=== PATIENT | female | born 1970 | race Caucasian/White ===

== ENCOUNTER 2020-10-02 09:42 | Outpatient (REF) | payer BC, SELFPAY ==
--- NOTE | 2020-10-02 | FL_ITS ---
EXAMINATION: FL BARIUM SWALLOW CLINICAL INFORMATION: Dysphagia COMPARISON: None TECHNIQUE: Barium swallow examination is performed using fluoroscopic evaluation in addition to multiple fluoroscopic spot views. The patient is imaged both upright and prone and using both thick and thin sulfate along with effervescent granules. Barium tablet was also administered. Fluoroscopy time: 0.7 minutes DAP: 4.1 Gycm2 Images: 40 FINDINGS: No aspiration or penetration is seen. There is mild impression on the posterior esophagus from vertebral body bony osteophyte at C6-C7. Esophageal motility is normal. No mass, stricture, mucosal irregularity, reflux or hernia is seen. Barium tablet passed into the stomach. FL/FL barium swallow IMPRESSION: Impression on the posterior cervical esophagus from vertebral body bony osteophyte at C6-C7 otherwise unremarkable exam.
== END 2020-10-02 09:43 | disposition home or self-care (01) ==
LOC: HO.XRAY 09:42
PROVIDERS: Visit Provider Internal Medicine
DX: R13.14 Dysphagia, pharyngoesophageal phase (principal)
CPT/HCPCS: 74220

== ENCOUNTER 2022-02-02 13:28 | Outpatient (REF) | payer BC, SELFPAY ==
[2022-02-02 16:54] LABS: MANUAL DIFF FLAG NO
[2022-02-02 16:59] LABS: Basophils Percent Auto 0.6 % (0-2); Eosinophils Absolute Auto 0.2 X10*3/uL (0.0-0.4); Eosinophils Percent Auto 2.6 % (0-4); Hematocrit 38.6 % (37.0-47.0); Hemoglobin 12.7 g/dl (12.0-16.0); Imm Gran Abs Auto 0.03 X10*3/uL (0.00-0.03); Imm Gran Pct Auto 0.4 % (0.0-0.4); Lymphocytes Absolute Auto 1.3 X10*3/uL (1.2-4.9); Lymphocytes Percent Auto 19.5 % (20-40); Mean Corpuscular HGB Conc 32.9 g/dl (31.0-35.0); Mean Corpuscular Hemoglobin 29.1 pg (27.0-33.0); Mean Corpuscular Volume 88.3 fL (80.0-98.0); Mean Platelet Volume 9.3 fL (9.4-12.3); Monocytes Absolute Auto 0.4 X10*3/uL (0.1-1.2); Monocytes Percent Auto 5.7 % (2-11); Neutrophils Absolute Auto 4.8 x10*3/uL (2.0-8.3); Neutrophils Percent Auto 71.2 % (45-73); Platelet Count 383 X10*3/uL (160-400); Red Blood Count 4.37 X10*6/uL (4.20-5.50); Red Cell Distribution Width 12.5 % (11.0-16.0); White Blood Count 6.8 X10*3/uL (4.8-10.8)
[2022-02-02 17:11] LABS: Alanine Aminotransferase 22 U/L (0-31); Albumin Level 4.5 g/dL (3.5-5.0); Alkaline Phosphatase 86 U/L (39-117); Anion Gap 13 (12-20); Aspartate Amino Transferase 16 U/L (5-31); Bilirubin Total 0.5 mg/dL (0.0-1.0); Blood Urea Nitrogen 12 mg/dL (9-16); Carbon Dioxide 24 mmol/L (22-29); Chloride 104 mmol/L (96-108); Cholesterol 231 mg/dL; Estimated Average Glucose 100 mg/dL; Estimated Glomerular Filt Rate > 60; Glucose Random 105 mg/dL (60-115); HDL Cholesterol 53 mg/dL; Hemoglobin A1c % 5.1 %; LDL Cholesterol Calculated 151 mg/dl; Potassium 4.7 mmol/L (3.3-5.1); Sodium 136 mmol/L (135-145); Total Protein 7.3 g/dL (6.5-8.0); Triglycerides 138 mg/dL
[2022-02-02 17:32] LABS: Vitamin D 25-OH Total 29.2 ng/mL (>30)
== END 2022-02-02 13:29 | disposition home or self-care (01) ==
LOC: HO.HMGCLDS 13:28
PROVIDERS: Visit Provider Internal Medicine
DX: R73.01 Impaired fasting glucose (principal)
CPT/HCPCS: 36415; 80053; 80061; 82306; 83036; 85025

== ENCOUNTER 2024-01-07 10:36 | Outpatient (REF) | payer BC, SELFPAY ==
[2024-01-07 13:23] LABS: MANUAL DIFF FLAG NO
[2024-01-07 13:31] LABS: Basophils Percent Auto 0.7 % (0-2); Eosinophils Absolute Auto 0.3 X10*3/uL (0.0-0.4); Eosinophils Percent Auto 4.2 % (0-4); Hemoglobin 12.1 g/dl (12.0-16.0); Imm Gran Abs Auto 0.01 X10*3/uL (0.00-0.03); Imm Gran Pct Auto 0.2 % (0.0-0.4); Lymphocytes Absolute Auto 1.5 X10*3/uL (1.2-4.9); Lymphocytes Percent Auto 23.9 % (20-40); Mean Corpuscular HGB Conc 32.7 g/dl (31.0-35.0); Mean Corpuscular Hemoglobin 27.8 pg (27.0-33.0); Mean Corpuscular Volume 84.9 fL (80.0-98.0); Monocytes Absolute Auto 0.4 X10*3/uL (0.1-1.2); Monocytes Percent Auto 7.2 % (2-11); Neutrophils Absolute Auto 3.9 x10*3/uL (2.0-8.3); Neutrophils Percent Auto 63.8 % (45-73); Platelet Count 297 X10*3/uL (160-400); Red Blood Count 4.36 X10*6/uL (4.20-5.50); Red Cell Distribution Width 13.2 % (11.0-16.0); White Blood Count 6.2 X10*3/uL (4.8-10.8)
[2024-01-07 13:37] LABS: Estimated Average Glucose 114 mg/dL; Hemoglobin A1c % 5.6 % (<6.0)
[2024-01-07 14:23] LABS: Alanine Aminotransferase 35 U/L (0-31); Albumin Level 3.9 g/dL (3.5-5.0); Alkaline Phosphatase 84 U/L (39-117); Anion Gap 13 (12-20); Aspartate Amino Transferase 21 U/L (5-31); Bilirubin Total 0.4 mg/dL (0.0-1.0); Blood Urea Nitrogen 14 mg/dL (9-16); Calcium 9.4 mg/dL (8.4-10.2); Carbon Dioxide 27 mmol/L (22-29); Chloride 105 mmol/L (96-108); Cholesterol 229 mg/dL (<200); Estimated Glomerular Filt Rate > 60; Glucose Random 103 mg/dL (60-115); HDL Cholesterol 48 mg/dL (>40); LDL Cholesterol Calculated 143 mg/dL (<100); Potassium 4.6 mmol/L (3.3-5.1); Sodium 140 mmol/L (135-145); Total Protein 6.7 g/dL (6.5-8.0); Triglycerides 194 mg/dL (<150)
== END 2024-01-07 10:37 | disposition home or self-care (01) ==
LOC: HO.MANLDS 10:36
PROVIDERS: Visit Provider Physician Assistant
DX: R07.89 Other chest pain (principal); Z13.1 Encounter for screening for diabetes mellitus
CPT/HCPCS: 36415; 80053; 80061; 83036; 85025

== ENCOUNTER 2024-04-28 13:07 | Outpatient (REF) | payer BC, SELFPAY ==
[2024-04-28 16:12] LABS: MANUAL DIFF FLAG NO
[2024-04-28 16:16] LABS: Basophils Absolute Auto 0.1 X10*3/uL (0.0-0.2); Basophils Percent Auto 0.8 % (0-2); Eosinophils Absolute Auto 0.2 X10*3/uL (0.0-0.4); Eosinophils Percent Auto 3.8 % (0-4); Hematocrit 38.4 % (37.0-47.0); Hemoglobin 12.5 g/dl (12.0-16.0); Imm Gran Abs Auto 0.01 X10*3/uL (0.00-0.03); Imm Gran Pct Auto 0.2 % (0.0-0.4); Lymphocytes Absolute Auto 1.7 X10*3/uL (1.2-4.9); Lymphocytes Percent Auto 27.6 % (20-40); Mean Corpuscular HGB Conc 32.6 g/dl (31.0-35.0); Mean Corpuscular Volume 85.9 fL (80.0-98.0); Mean Platelet Volume 8.9 fL (9.4-12.3); Monocytes Absolute Auto 0.5 X10*3/uL (0.1-1.2); Neutrophils Absolute Auto 3.7 x10*3/uL (2.0-8.3); Neutrophils Percent Auto 59.6 % (45-73); Platelet Count 381 X10*3/uL (160-400); Red Blood Count 4.47 X10*6/uL (4.20-5.50); Red Cell Distribution Width 13.3 % (11.0-16.0); White Blood Count 6.1 X10*3/uL (4.8-10.8)
[2024-04-28 16:58] LABS: Estimated Average Glucose 120 mg/dL; Hemoglobin A1c % 5.8 % (<6.0)
[2024-04-28 17:30] LABS: Anion Gap 13 (12-20); Blood Urea Nitrogen 18 mg/dL (9-16); Carbon Dioxide 28 mmol/L (22-29); Chloride 106 mmol/L (96-108); Potassium 4.9 mmol/L (3.3-5.1); Sodium 142 mmol/L (135-145)
[2024-04-28 17:31] LABS: Aspartate Amino Transferase 29 U/L (5-31); Bilirubin Total 0.4 mg/dL (0.0-1.0); Calcium 10.6 mg/dL (8.4-10.2); Estimated Glomerular Filt Rate > 60; Glucose Random 97 mg/dL (60-115)
[2024-04-28 17:32] LABS: Alanine Aminotransferase 42 U/L (0-31); Albumin Level 4.6 g/dL (3.5-5.0); Alkaline Phosphatase 80 U/L (39-117); Cholesterol 271 mg/dL (<200); HDL Cholesterol 40 mg/dL (>40); LDL Cholesterol Calculated 190 mg/dL (<100); Total Protein 7.8 g/dL (6.5-8.0); Triglycerides 209 mg/dL (<150)
[2024-04-28 17:43] LABS: Free T4 (Free Thyroxine) 0.82 ng/dL (0.71-1.85); Thyroid Stimulating Hormone 0.81 uIU/mL (0.32-4.0); Vitamin D 25-OH Total 47.7 ng/mL (>30)
[2024-04-28 17:58] LABS: Folate 15.6 ng/mL (> or = 4.0); Vitamin B12 749 pg/mL (200-900)
== END 2024-04-28 13:08 | disposition home or self-care (01) ==
LOC: HO.HMGCLDS 13:07
PROVIDERS: PCP Internal Medicine; Visit Provider Physician Assistant
DX: Z00.00 Encounter for general adult medical examination without abnormal findings (principal); Z13.1 Encounter for screening for diabetes mellitus; Z13.89 Encounter for screening for other disorder
CPT/HCPCS: 36415; 80053; 80061; 82306; 82607; 82746; 83036; 84439; 84443; 85025

== ENCOUNTER 2025-01-19 08:58 | Outpatient (REF) | payer BC, SELFPAY ==
--- OUTSIDE RECORDS SUMMARY | 2025-01-19 09:42 | XMS_ITS | Data Portability ---
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 MODERATE MUST MEET 2 OUT OF 3 ELEMENTS: PROBLEMS, DATA OR RISK ELEMENT 1: PROBLEMS ADDRESSED 1 OR MORE CHRONIC ILLNESS WITH EXACERBATION OR 2 OR MORE STABLE CHRONIC ILLNESSES OR 1 UNDIAGNOSED NEW PROBLEM OR 1 ACUTE ILLNESS W/SYMPTOMS OR 1 ACUTE COMPLICATED INJURY ELEMENT 2: DATA MUST MEET 1 OF 3 CATEGORIES CATEGORY 1: REVIEW OF PRIOR EXTERNAL NOTES, REVIEW OF RESULTS, ORDERING OF EACH TEST, ASSESSMENT REQUIRING INDEPENDENT HISTORIAN OR CATEGORY 2: INDEPENDENT INTERPRETATION OF TESTS BY ANOTHER PHYSICIAN OR SPECIALIST OR CATEGORY 3: DISCUSSION OF MGT OR TEST INTERPRETATION W/EXTERNAL PHYSICIAN OR SPECIALIST ELEMENT 3: RISK RISK OF COMPLICATIONS AND/OR MORBIDITY OR MORTALITY OF PATIENT MANAGEMENT PROVIDER MUST THOROUGHLY DOCUMENT EACH ELEMENT THAT IS COVERED Not available 02/02/2022 12:14:19 05/20/2022 05/20/2022 Patient agreed and verbally consents to this audio and video Telehealth appt via a secure platform [email or web address] Not available 05/20/2022 10:24:30 12/17/2023 12/17/2023 Patient agreed and verbally consents to this audio and video Telehealth appt via a secure platform [email or web address] Not available 12/17/2023 15:29:30 Plan of Treatment Reminders Order Date Submit Date Provider Last Modified By Organization Details Last Modified Time Details Appointments FOLLOW UP 15 2024 10:45A VEE HIDALGO Not available Not available Not available ANNUAL EXAM 2024 03:30P VEE HIDALGO Not available Not available Not available Lab CMP, serum or plasma 2023 024 [facility], [address] [place] [address], [address], 05/01/2024 11:56:45 CBC w/ auto diff 2023 024 [facility], [address] [place] [address], [address], 04/28/2024 12:10:53 lipid panel, blood 2023 024 [facility], [address] [place] [address], [address], 04/28/2024 12:10:53 vitamin D, 25-hydrox y, total, serum 2023 024 [facility], [address] [place] [address], [address], 04/28/2024 12:10:54 TSH + free T4, serum 2023 024 [facility], [address] [place] [address], [address], 04/28/2024 12:10:54 hemoglobi n A1c, QN, blood 2023 024 [facility], [address] [place] [address], [address], 04/28/2024 12:10:54 vitamin B12 + folate, serum or blood 2023 024 [facility], [address] [place] [address], [address], 04/28/2024 12:10:53 CBC w/ auto diff 2023 024 [facility], [address] [place] [address], [address], 01/07/2024 10:32:40 CMP, serum or plasma 2023 024 [facility], [address] [place] [address], [place], [address], 01/10/2024 11:40:37 lipid panel, serum 2023 024 [facility], [address] [place] [address], [address], 01/10/2024 11:40:37 hemoglobi n A1c, QN, blood 2023 024 [facility], [address] [place] [address], [place], [address], 01/10/2024 11:40:38 CMP, serum or plasma 2021 022 [facility] Not available 02/03/2022 11:57:09 lipid panel, serum 2021 022 [facility] Not available 02/03/2022 11:57:09 vitamin D, 25-hydrox y, total, serum 2021 022 [facility] Not available 02/03/2022 11:57:09 CBC w/ auto diff 2021 022 [email or web address] Not available 02/02/2022 12:24:16 hemoglobi n A1c, QN, blood 2021 022 [facility] Not available 02/03/2022 11:57:09 Referral otolaryng ologist referral 2023 024 talya Sommers MD, [address] [place], [address], 05/02/2024 08:35:37 Procedures None recorded. Surgeries None recorded. Imaging CT, abdomen + pelvis, w/o contrast - NOT REQUIRED Procedure codes: 21141Yncq Reference #: [id number] AMResolut ion: Completed on 4 at 11:28 am. Call ref #[id number] 5AM.had gallbladd er removed 2023 024 [email or web address] Not available 05/02/2024 08:37:31 CT, neck, soft tissue, w/ contrast - NOT REQUIRED Procedure codes: 49779Pwde Reference #: [id number] 33Resolut ion: Completed on at 02:38 pm. Call ref #[id number] 733. 2023 024 [email or web address] Not available 01/24/2024 08:06:25 exercise stress test 2021 022 hrubner [facility], [address] [place] [address], [address], 02/06/2022 09:48:03 CT, heart, w/o contrast, w/ coronary calcium score 2021 022 hrubner Not available 02/06/2022 09:48:03 event monitor 2021 022 hrubner [facility], [address] [place], [address], 02/06/2022 09:48:03 Medication Orders fluticaso ne propionat e 110 mcg/actua tion HFA aerosol inhaler 2023 024 [facility], [address] [place], [address], 01/07/2024 10:28:36 levofloxa mickey 500 mg tablet 2023 024 [facility], [address] [place], [address], 12/22/2023 08:56:35 prednison e 10 mg tablet 2023 024 [email or web address] [facility], [address] [place], [address], 04/28/2024 11:53:38 albuterol sulfate HFA 90 mcg/actua tion aerosol inhaler 2023 024 [facility], [address] [place], [address], 04/28/2024 11:54:11 benzonata te 200 mg capsule 2023 024 [email or web address] [facility], [address] [place], [address], 04/28/2024 11:53:59 codeine 10 mg-guaife nesin 100 mg/5 mL oral liquid 2021 022 [facility], [address] [place], [address], 12/22/2023 08:56:18 Zithromax Z-Jevon 250 mg tablet 2021 022 [facility], [address] [place], [address], 12/22/2023 08:56:28 Patient TargetsNo targets recorded. Patient InstructionsNo instructions recorded. 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 [email or web address] [facility] [address] , [place], [address], 02/27/2022 11:22:39 03/09/20 22 03/09/2022 event monit or No observ ation record ed. [facility] [address] , [place], [address], 03/09/2022 22:44:50 03/09/20 22 03/09/2022 event monit or No observ ation record ed. [facility] [address], [place], [address], 03/09/2022 22:44:51 03/09/20 22 03/09/2022 event monit or No observ ation record ed. [facility] [address], [place], [address], 03/09/2022 22:44:52 03/09/20 22 03/09/2022 event monit or No observ ation record ed. [facility] [address], [place], [address], 03/10/2022 08:11:34 03/10/20 22 03/10/2022 event monit or No observ ation record ed. Not Available 2021 15:07:25 03/10/20 22 03/10/2022 event monit or No observ ation record ed. Not Available 2021 08:11:21 03/10/20 22 03/09/2022 event monit or No observ ation record ed. [facility] [address], [place], [address], 03/11/2022 08:11:33 03/11/20 22 03/11/2022 event monit or No observ ation record ed. [facility] [address], [place], [address], 03/11/2022 10:21:35 03/11/20 22 03/11/2022 event monit or No observ ation record ed. [facility] [address], [place], [address], 03/11/2022 10:21:47 03/11/20 22 03/11/2022 event monit or No observ ation record ed. [facility] [address], [place], [address], 03/11/2022 10:22:04 03/11/20 22 03/11/2022 event monit or No observ ation record ed. Not Available 2021 09:22:06 03/11/20 22 03/11/2022 event monit or No observ ation record ed. [facility] [address], [place], [address], 03/12/2022 09:22:31 03/11/20 22 03/11/2022 event monit or No observ ation record ed. Not Available 2021 09:23:10 03/11/20 22 03/11/2022 event monit or No observ ation record ed. [facility] [address], [place], [address], 03/12/2022 16:35:25 03/11/20 22 03/11/2022 event monit or No observ ation record ed. [facility] [address], [place], [address], 03/12/2022 16:35:43 03/12/20 22 03/12/2022 event monit or No observ ation record ed. Not Available 2021 16:35:56 03/12/20 22 03/12/2022 event monit or No observ ation record ed. [facility] [address], [place], [address], 03/12/2022 16:36:08 03/13/20 22 03/13/2022 event monit or No observ ation record ed. Not Available 2021 12:18:37 03/13/20 22 03/13/2022 event monit or No observ ation record ed. [facility] [address], [place], [address], 03/14/2022 07:16:24 03/13/20 22 03/09/2022 event monit or No observ ation record ed. Not Available 2021 07:16:35 03/14/20 22 03/14/2022 event monit or No observ ation record ed. [facility] [address], [place], [address], 03/15/2022 07:53:11 03/15/20 22 03/15/2022 event monit or No observ ation record ed. [facility] [address], [place], [address], 03/16/2022 06:52:03 03/15/20 22 03/15/2022 event monit or No observ ation record ed. [facility] [address], [place], [address], 03/16/2022 06:52:19 03/15/20 22 03/15/2022 event monit or No observ ation record ed. [facility] [address], [place], [address], 03/16/2022 06:52:33 03/15/20 22 03/15/2022 event monit or No observ ation record ed. Not Available 2021 06:52:47 03/15/20 22 03/15/2022 event monit or No observ ation record ed. Not Available 2021 06:53:01 03/15/20 22 03/09/2022 event monit or No observ ation record ed. [facility] [address], [place], [address], 03/16/2022 06:53:16 03/17/20 22 03/17/2022 event monit or No observ ation record ed. [facility] [address], [place], [address], 03/17/2022 08:05:59 03/18/20 22 03/18/2022 event monit or No observ ation record ed. [facility] [address], [place], [address], 03/18/2022 10:43:33 03/18/20 22 03/18/2022 event monit or No observ ation record ed. [facility] [address], [place], [address], 03/18/2022 10:43:46 03/18/20 22 03/18/2022 event monit or No observ ation record ed. [facility] [address], [place], [address], 03/18/2022 10:43:59 03/18/20 22 03/09/2022 event monit or No observ ation record ed. [facility] [address], [place], [address], 03/18/2022 16:52:18 03/18/20 22 03/18/2022 event monit or No observ ation record ed. [facility] [address], [place], [address], 03/18/2022 16:52:08 03/18/20 22 03/18/2022 event monit or No observ ation record ed. [facility] [address], [place], [address], 03/19/2022 07:47:30 03/18/20 22 03/18/2022 event monit or No observ ation record ed. [facility] [address], [place], [address], 03/19/2022 07:47:51 03/19/20 22 03/19/2022 event monit or No observ ation record ed. [facility] [address], [place], [address], 03/19/2022 09:56:02 03/19/20 22 03/19/2022 event monit or No observ ation record ed. Not Available 2021 18:53:49 03/19/20 22 03/19/2022 event monit or No observ ation record ed. [facility] [address], [place], [address], 03/19/2022 18:54:03 03/19/20 22 03/19/2022 event monit or No observ ation record ed. [facility] [address], [place], [address], 03/19/2022 18:54:15 03/19/20 22 03/19/2022 event monit or No observ ation record ed. [facility] [address], [place], [address], 03/19/2022 18:54:29 03/19/20 22 03/19/2022 event monit or No observ ation record ed. [facility] [address], [place], [address], 03/19/2022 18:54:43 03/19/20 22 03/19/2022 event monit or No observ ation record ed. [facility] [address], [place], [address], 03/19/2022 18:55:00 03/19/20 22 03/19/2022 event monit or No observ ation record ed. [facility] [address], [place], [address], 03/20/2022 06:52:56 03/19/20 22 03/19/2022 event monit or No observ ation record ed. [facility] [address], [place], [address], 03/20/2022 06:53:07 03/20/20 22 03/20/2022 event monit or No observ ation record ed. [facility] [address], [place], [address], 03/20/2022 11:43:18 03/21/20 22 03/20/2022 event monit or No observ ation record ed. Not Available 2021 15:53:07 03/21/20 22 03/21/2022 event monit or No observ ation record ed. [facility] [address], [place], [address], 03/21/2022 15:53:18 03/22/20 22 03/22/2022 event monit or No observ ation record ed. Not Available 2021 07:12:18 03/23/20 22 03/23/2022 event monit or No observ ation record ed. [facility] [address], [place], [address], 03/23/2022 11:50:59 03/23/20 22 03/23/2022 event monit or No observ ation record ed. [facility] [address], [place], [address], 03/23/2022 11:51:12 03/23/20 22 03/23/2022 event monit or No observ ation record ed. [email or web address] [facility] [address], [place], [address], 03/23/2022 15:13:51 03/24/20 22 03/24/2022 event monit or No observ ation record ed. [email or web address] [facility] [address], [place], [address], 03/24/2022 15:51:45 03/24/20 22 03/24/2022 event monit or No observ ation record ed. [facility] [address], [place], [address], 03/25/2022 06:59:12 03/25/20 22 03/24/2022 event monit or No observ ation record ed. [facility] [address], [place], [address], 03/25/2022 06:59:24 03/25/20 22 03/25/2022 event monit or No observ ation record ed. [facility] [address] [facility], [place], [address], 03/25/2022 10:13:11 03/25/20 22 03/25/2022 event monit or No observ ation record ed. [facility] [address], [place], [address], 03/25/2022 14:09:52 03/25/20 22 03/09/2022 event monit or No observ ation record ed. [facility] [address], [place], [address], 03/26/2022 07:13:19 03/25/20 22 03/25/2022 event monit or No observ ation record ed. [facility] [address], [place], [address], 03/26/2022 07:13:35 03/26/20 22 03/26/2022 event monit or No observ ation record ed. [facility] [address], [place], [address], 03/26/2022 11:39:02 03/26/20 22 03/26/2022 event monit or No observ ation record ed. [facility] [address], [place], [address], 03/26/2022 15:04:33 03/26/20 22 03/26/2022 event monit or No observ ation record ed. Not Available 2021 15:04:45 03/26/20 22 03/26/2022 event monit or No observ ation record ed. [facility] [address], [place], [address], 03/27/2022 06:59:42 03/27/20 22 03/09/2022 event monit or No observ ation record ed. [email or web address] [facility] [address], [place], [address], 03/27/2022 16:47:32 03/28/20 22 03/28/2022 event monit or No observ ation record ed. [facility] [address], [place], [address], 03/28/2022 18:44:40 03/28/20 22 03/28/2022 event monit or No observ ation record ed. [email or web address] [facility] [address], [place], [address], 03/29/2022 09:43:07 03/28/20 22 03/28/2022 event monit or No observ ation record ed. [email or web address] [facility] [address], [place], [address], 03/29/2022 09:43:08 03/28/20 22 03/28/2022 event monit or No observ ation record ed. [facility] [address], [place], [address], 03/28/2022 18:45:42 03/28/20 22 03/28/2022 event monit or No observ ation record ed. [facility] [address], [place], [address], 03/29/2022 19:14:57 03/29/20 22 03/29/2022 event monit or No observ ation record ed. [facility] [address], [place], [address], 03/30/2022 06:49:04 03/29/20 22 03/29/2022 event monit or No observ ation record ed. [facility] [address], [place], [address], 03/30/2022 06:49:18 03/29/20 22 03/09/2022 event monit or No observ ation record ed. [facility] [address], [place], [address], 03/30/2022 06:49:30 03/29/20 22 03/29/2022 event monit or No observ ation record ed. [facility] [address], [place], [address], 03/30/2022 06:49:46 03/29/20 22 03/29/2022 event monit or No observ ation record ed. [facility] [address], [place], [address], 03/30/2022 06:50:04 03/30/20 22 03/30/2022 event monit or No observ ation record ed. [email or web address] [facility] [address], [place], [address], 03/30/2022 14:15:37 03/31/20 22 03/31/2022 event monit or No observ ation record ed. [email or web address] [facility] [address], [place], [address], 03/31/2022 15:29:38 04/01/20 22 03/31/2022 event monit or No observ ation record ed. [email or web address] [facility] [address], [place], [address], 04/01/2022 09:00:38 04/02/20 22 03/09/2022 event monit or No observ ation record ed. [facility] [address], [place], [address], 04/02/2022 08:03:06 04/02/20 22 04/02/2022 event monit or No observ ation record ed. Not Available 2021 08:03:18 04/02/20 22 04/02/2022 event monit or No observ ation record ed. [facility] [address], [place], [address], 04/02/2022 14:52:22 04/02/20 22 04/02/2022 event monit or No observ ation record ed. [facility] [address], [place], [address], 04/02/2022 14:52:33 04/02/20 22 04/02/2022 event monit or No observ ation record ed. Not Available 2021 18:15:50 04/02/20 22 04/02/2022 event monit or No observ ation record ed. [facility] [address], [place], [address], 04/02/2022 14:52:46 04/02/20 22 04/02/2022 event monit or No observ ation record ed. Not Available 2021 18:16:02 04/02/20 22 04/02/2022 event monit or No observ ation record ed. [facility] [address], [place], [address], 04/03/2022 06:55:08 04/03/20 22 04/03/2022 event monit or No observ ation record ed. [facility] [address], [place], [address], 04/03/2022 09:40:05 04/03/20 22 04/03/2022 event monit or No observ ation record ed. Not Available 2021 09:40:17 04/03/20 22 04/03/2022 event monit or No observ ation record ed. [facility] [address], [place], [address], 04/04/2022 08:32:45 04/03/20 22 04/03/2022 event monit or No observ ation record ed. [facility] [address], [place], [address], 04/04/2022 08:32:57 04/03/20 22 04/03/2022 event monit or No observ ation record ed. [facility] [address], [place], [address], 04/04/2022 08:33:10 04/05/20 22 04/04/2022 event monit or No observ ation record ed. [facility] [address], [place], [address], 04/06/2022 07:38:25 04/05/20 22 03/09/2022 event monit or No observ ation record ed. [facility] [address], [place], [address], 04/06/2022 07:38:38 04/05/20 22 04/05/2022 event monit or No observ ation record ed. [facility] [address], [place], [address], 04/06/2022 07:38:52 04/06/20 event monit or No observ ation record ed. [facility] [address] [facility], [place], [address], 04/06/2022 10:09:15 04/06/20 22 04/06/2022 event monit or No observ ation record ed. [facility] [address], [place], [address], 04/06/2022 15:19:33 04/06/20 22 04/06/2022 event monit or No observ ation record ed. [facility] [address], [place], [address], 04/06/2022 15:19:34 04/06/20 22 04/06/2022 event monit or No observ ation record ed. Not Available 2021 06:36:33 04/06/20 22 04/06/2022 event monit or No observ ation record ed. [facility] [address], [place], [address], 04/07/2022 06:36:46 04/06/20 22 04/06/2022 event monit or No observ ation record ed. Not Available 2021 06:37:01 04/06/20 22 04/06/2022 event monit or No observ ation record ed. Not Available 2021 06:37:14 04/08/20 22 03/09/2022 event monit or No observ ation record ed. [facility] [address] [facility], [place], [address], 04/10/2022 09:40:34 04/16/20 22 04/08/2022 event monit or No observ ation record ed. [facility] [address], [place], [address], 04/20/2022 09:07:04 06/17/20 22 06/16/2022 , echoc ardio gram No observ ation record ed. [facility] [address], [place], [address], 06/17/2022 16:12:53 12/14/19 23 12/11/2022 trans -thor acic echoc ardio gram (TTE) (PROC ) No observ ation record ed. [facility] [address] , [place], [address], 12/15/2022 22:53:42 02/20/20 23 02/09/2023 home sleep study No observ ation record ed. [facility] [address] [place], [address], 02/19/2023 14:37:23 12/21/19 24 12/21/2023 XR, chest , 2 view No observ ation record ed. [facility] [address] [facility] [address], [place], [address], 12/22/2023 08:55:56 12/22/19 24 12/21/2023 XR, neck, soft tissu e No observ ation record ed. [facility] [address], [place], [address], 12/22/2023 13:49:26 12/25/19 24 12/24/2023 US, neck, soft tissu e No observ ation record ed. [email or web address] [facility] [address] [place] [address] , [place], [address], 12/27/2023 16:21:41 02/16/20 24 02/16/2024 MAMMO , scree néstor, digit al, bilat eral No observ ation record ed. [facility] [address], [place], [address], 04/28/2024 12:25:02 02/24/20 24 02/22/2024 CT, neck, soft tissu e, w/ contr ast No observ ation record ed. [facility] [address] [facility] [address], [place], [address], 04/28/2024 12:25:02 02/25/20 24 02/25/2024 MAMMO , scree néstor, digit al, bilat eral No observ ation record ed. [facility] [address] [facility] [address], [place], [address], 04/28/2024 12:25:02 02/28/20 24 02/25/2024 MAMMO , scree néstor, digit al, bilat eral No observ ation record ed. [facility] [address] [facility] [address], [place], [address], 04/28/2024 12:25:01 02/29/20 24 02/29/2024 XR, chest , 2 view No observ ation record ed. [facility] [address] [place] [address] , [place], [address], 04/28/2024 12:25:01 05/29/20 24 05/26/2024 CT, abdom en + pelvi s, w/o contr ast No observ ation record ed. [address] [facility], [place], [address], 05/30/2024 15:14:54 08/18/20 24 08/16/2024 US, echoc ardio gram No observ ation record ed. [address] [facility] [address], [place], [address], 08/18/2024 08:50:34 09/07/20 24 09/07/2024 MAMMO , scree néstor, digit al, bilat eral No observ ation record ed. [facility] [address] [facility] [address], [place], [address], 09/08/2024 09:20:45 11/06/20 24 11/06/2024 CT, heart , w/o contr ast, w/ coron eusebio calci um score No observ ation record ed. jbigda [facility] [address] [place], [address], 11/10/2024 06:43:27 Result Notes None recorded. Problems Name Problem SNOMED Code Status Onset Date Resolution Date Notes Provider Name and Address Organization Details Recorded Time Electroc ardiogra m abnormal 629503813 Active 2021 VEE JIMENES [address] [place], [address], [facility] 2 11:23:12 Acute sinusiti s 04107847 Active 2021 VEE JIMENES [address] [place], [address], [facility] 2 10:22:40 Producti ve cough 04577916 Active 2021 VEE JIMENES [address] [place] [address], [address], [facility] 2 10:22:59 Allergic reaction to drug 519519225 Active 2021 VEE JIMENES [address] [place], [address], [facility] 2 14:00:51 Acute bronchit is 64715869 Active 2021 VEE JIMENES [address] [place], [address], [facility] 2 16:25:16 Sleep apnea 58924039 Active 2022 VEE JIMENES [address] [place] [address], [address], [facility] 3 12:33:06 Cough [id number] Active [address] [place] [address], [address], [facility] 4 15:29:39 Pneumoni a 967798927 Active 2023 VEE JIMENES [address] [place] [address], [address], [facility] 4 15:30:59 Peritons illar abscess 52973882 Active 2023 VEE JIMENES [address] [place], [address], [facility] 4 11:46:41 Mass of neck 920031364 Active 2023 VEE JIMENES [address] [place], [address], [facility] 4 13:50:00 Chronic cough 80135577 Active 2023 VEE JIMENES [address] [place], [address], [facility] 4 10:27:43 Atypical chest pain 755788428 Active 2023 VEE JIMENES [address] [place], [address], [facility] 4 10:28:56 Chronic laryngit is 12491896 Active 2023 VEE JIMENES [address] [place], [address], [facility] 4 12:04:53 Abdomina l pain 10159108 Active 2023 VEE JIMENES [address] [place], [address], [facility] 4 12:11:42 Impaired fasting glycemia 433030255 Active 2017 Dior patino [facility] 0 15:13:20 History of depressi on 262326007 Active 2017 Dior patino [facility] 0 15:13:20 Attentio n deficit hyperact ivity disorder , predomin antly inattent cielo type 11890106 Active 2017 [address]ior [address] [facility] 0 15:13:20 Degenera tion of interver tebral disc 82530570 Active 2017 cervical Dior patino [facility] Internal [facility] 0 15:13:20 Metaboli c syndrome X 485608175 [facility] 0 15:13:20 Morbid obesity 954559236 Completed 201704/07/2019 Shun Hernandez DO [address] [place], [address], [facility] 9 14:34:58 Gastroes ophageal reflux disease 301143986 [facility] 15:13:20 Problem Notes None recorded. Procedures Surgical History Date Name Laterality Status Provider Name and Address Organization Details Recorded Time cholecystectomy completed BOONE ROBINS, VEE [address] [place], [address], [facility] 04/28/2024 12:17:44 Imaging Results Imaging Date Name Status LastModified by Organization Details LastModified Time 02/26/2022 exercise stress test completed [facility] [address] [place], [address], 02/27/2022 11:22:39 03/09/2022 event monitor completed [employer] [address] [facility], [place], [address], 03/09/2022 22:44:50 03/09/2022 event monitor completed [employer] [address], [place], [address], 03/09/2022 22:44:51 03/09/2022 event monitor completed [employer] [address], [place], [address], 03/09/2022 22:44:52 03/09/2022 event monitor completed [employer] [address] [facility], [place], [address], 03/10/2022 08:11:34 03/10/2022 event monitor completed Information not available 03/10/2022 15:07:25 03/10/2022 event monitor completed Information not available 03/11/2022 08:11:21 03/09/2022 event monitor completed [facility] [address], [place], [address], 03/11/2022 08:11:33 03/11/2022 event monitor completed [facility] [address], [place], [address], 03/11/2022 10:21:35 03/11/2022 event monitor completed [facility] [address], [place], [address], 03/11/2022 10:21:47 03/11/2022 event monitor completed [facility] [address], [place], [address], 03/11/2022 10:22:04 03/11/2022 event monitor completed Information not available 03/12/2022 09:22:06 03/11/2022 event monitor completed [facility] [address], [place], [address], 03/12/2022 09:22:31 03/11/2022 event monitor completed Information not available 03/12/2022 09:23:10 03/11/2022 event monitor completed [facility] [address], [place], [address], 03/12/2022 16:35:25 03/11/2022 event monitor completed [facility] [address], [place], [address], 03/12/2022 16:35:43 03/12/2022 event monitor completed Information not available 03/12/2022 16:35:56 03/12/2022 event monitor completed [facility] [address], [place], [address], 03/12/2022 16:36:08 03/13/2022 event monitor completed Information not available 03/13/2022 12:18:37 03/13/2022 event monitor completed [facility] [address], [place], [address], 03/14/2022 07:16:24 03/09/2022 event monitor completed Information not available 03/14/2022 07:16:35 03/14/2022 event monitor completed [facility] [address], [place], [address], 03/15/2022 07:53:11 03/15/2022 event monitor completed [facility] [address], [place], [address], 03/16/2022 06:52:03 03/15/2022 event monitor completed [facility] [address], [place], [address], 03/16/2022 06:52:19 03/15/2022 event monitor completed [facility] [address], [place], [address], 03/16/2022 06:52:33 03/15/2022 event monitor completed Information not available 03/16/2022 06:52:47 03/15/2022 event monitor completed Information not available 03/16/2022 06:53:01 03/09/2022 event monitor completed [facility] [address], [place], [address], 03/16/2022 06:53:16 03/17/2022 event monitor completed [facility] [address], [place], [address], 03/17/2022 08:05:59 03/18/2022 event monitor completed [facility] [address], [place], [address], 03/18/2022 10:43:33 03/18/2022 event monitor completed [facility] [address], [place], [address], 03/18/2022 10:43:46 03/18/2022 event monitor completed [facility] [address], [place], [address], 03/18/2022 10:43:59 03/09/2022 event monitor completed [facility] [address], [place], [address], 03/18/2022 16:52:18 03/18/2022 event monitor completed [facility] [address], [place], [address], 03/18/2022 16:52:08 03/18/2022 event monitor completed [facility] [address], [place], [address], 03/19/2022 07:47:30 03/18/2022 event monitor completed [facility] [address], [place], [address], 03/19/2022 07:47:51 03/19/2022 event monitor completed [facility] [address], [place], [address], 03/19/2022 09:56:02 03/19/2022 event monitor completed Information not available 03/19/2022 18:53:49 03/19/2022 event monitor completed [facility] [address], [place], [address], 03/19/2022 18:54:03 03/19/2022 event monitor completed [facility] [address], [place], [address], 03/19/2022 18:54:15 03/19/2022 event monitor completed [facility] [address], [place], [address], 03/19/2022 18:54:29 03/19/2022 event monitor completed [facility] [address], [place], [address], 03/19/2022 18:54:43 03/19/2022 event monitor completed [facility] [address], [place], [address], 03/19/2022 18:55:00 03/19/2022 event monitor completed [facility] [address], [place], [address], 03/20/2022 06:52:56 03/19/2022 event monitor completed [facility] [address], [place], [address], 03/20/2022 06:53:07 03/20/2022 event monitor completed [facility] [address], [place], [address], 03/20/2022 11:43:18 03/20/2022 event monitor completed Information not available 03/21/2022 15:53:07 03/21/2022 event monitor completed [facility] [address], [place], [address], 03/21/2022 15:53:18 03/22/2022 event monitor completed Information not available 03/23/2022 07:12:18 03/23/2022 event monitor completed [facility] [address], [place], [address], 03/23/2022 11:50:59 03/23/2022 event monitor completed [facility] [address], [place], [address], 03/23/2022 11:51:12 03/23/2022 event monitor completed [email or web address] [facility] [address], [place], [address], 03/23/2022 15:13:51 03/24/2022 event monitor completed [email or web address] [facility] [address], [place], [address], 03/24/2022 15:51:45 03/24/2022 event monitor completed [facility] [address], [place], [address], 03/25/2022 06:59:12 03/24/2022 event monitor completed [facility] [address], [place], [address], 03/25/2022 06:59:24 03/25/2022 event monitor completed [email or web address] [facility] [address] [facility], [place], [address], 03/25/2022 10:13:11 03/25/2022 event monitor completed [email or web address] [facility] [address], [place], [address], 03/25/2022 14:09:52 03/09/2022 event monitor completed [facility] [address], [place], [address], 03/26/2022 07:13:19 03/25/2022 event monitor completed [facility] [address], [place], [address], 03/26/2022 07:13:35 03/26/2022 event monitor completed [facility] [address], [place], [address], 03/26/2022 11:39:02 03/26/2022 event monitor completed [facility] [address], [place], [address], 03/26/2022 15:04:33 03/26/2022 event monitor completed Information not available 03/26/2022 15:04:45 03/26/2022 event monitor completed [facility] [address], [place], [address], 03/27/2022 06:59:42 03/09/2022 event monitor completed [email or web address] [facility] [address], [place], [address], 03/27/2022 16:47:32 03/28/2022 event monitor completed [facility] [address], [place], [address], 03/28/2022 18:44:40 03/28/2022 event monitor completed [email or web address] [facility] [address], [place], [address], 03/29/2022 09:43:07 03/28/2022 event monitor completed [email or web address] [facility] [address], [place], [address], 03/29/2022 09:43:08 03/28/2022 event monitor completed [facility] [address], [place], [address], 03/28/2022 18:45:42 03/28/2022 event monitor completed [facility] [address], [place], [address], 03/29/2022 19:14:57 03/29/2022 event monitor completed [facility] [address], [place], [address], 03/30/2022 06:49:04 03/29/2022 event monitor completed [facility] [address], [place], [address], 03/30/2022 06:49:18 03/09/2022 event monitor completed [facility] [address], [place], [address], 03/30/2022 06:49:30 03/29/2022 event monitor completed [facility] [address], [place], [address], 03/30/2022 06:49:46 03/29/2022 event monitor completed [facility] [address], [place], [address], 03/30/2022 06:50:04 03/30/2022 event monitor completed [email or web address] [facility] [address], [place], [address], 03/30/2022 14:15:37 03/31/2022 event monitor completed [email or web address] [facility] [address], [place], [address], 03/31/2022 15:29:38 03/31/2022 event monitor completed [email or web address] [facility] [address], [place], [address], 04/01/2022 09:00:38 03/09/2022 event monitor completed [facility] [address], [place], [address], 04/02/2022 08:03:06 04/02/2022 event monitor completed Information not available 04/02/2022 08:03:18 04/02/2022 event monitor completed [facility] [address], [place], [address], 04/02/2022 14:52:22 04/02/2022 event monitor completed [facility] [address], [place], [address], 04/02/2022 14:52:33 04/02/2022 event monitor completed Information not available 04/02/2022 18:15:50 04/02/2022 event monitor completed [facility] [address], [place], [address], 04/02/2022 14:52:46 04/02/2022 event monitor completed Information not available 04/02/2022 18:16:02 04/02/2022 event monitor completed [facility] [address], [place], [address], 04/03/2022 06:55:08 04/03/2022 event monitor completed [facility] [address], [place], [address], 04/03/2022 09:40:05 04/03/2022 event monitor completed Information not available 04/03/2022 09:40:17 04/03/2022 event monitor completed [facility] [address], [place], [address], 04/04/2022 08:32:45 04/03/2022 event monitor completed [facility] [address], [place], [address], 04/04/2022 08:32:57 04/03/2022 event monitor completed [facility] [address], [place], [address], 04/04/2022 08:33:10 04/04/2022 event monitor completed [facility] [address], [place], [address], 04/06/2022 07:38:25 03/09/2022 event monitor completed [facility] [address], [place], [address], 04/06/2022 07:38:38 04/05/2022 event monitor completed [facility] [address], [place], [address], 04/06/2022 07:38:52 04/06/2022 event monitor completed [facility] [address] [place], [address], 04/06/2022 10:09:15 04/06/2022 event monitor completed [facility] [address], [place], [address], 04/06/2022 15:19:33 04/06/2022 event monitor completed [facility] [address], [place], [address], 04/06/2022 15:19:34 04/06/2022 event monitor completed Information not available 04/07/2022 06:36:33 04/06/2022 event monitor completed [facility] [address], [place], [address], 04/07/2022 06:36:46 04/06/2022 event monitor completed Information not available 04/07/2022 06:37:01 04/06/2022 event monitor completed Information not available 04/07/2022 06:37:14 03/09/2022 event monitor completed [email or web address] [facility] [address] [place], [address], 04/10/2022 09:40:34 04/08/2022 [email or web address] [address] [place], [address], 04/20/2022 09:07:04 06/16/2022 US, echocardiogram completed [email or web address] [facility] [address], [place], [address], 06/17/2022 16:12:53 12/11/2022 trans-thoracic echocardiogram (TTE) (PROC) completed [email or web address] [facility] [address], [place], [address], 12/15/2022 22:53:42 02/09/2023 home sleep study completed [facility] [address] [facility], [place], [address], 02/19/2023 14:37:23 12/21/2023 XR, chest, 2 view completed [facility] [address] [facility] [address], [place], [address], 12/22/2023 08:55:56 12/21/2023 XR, neck, soft tissue completed [facility] [address], [place], [address], 12/22/2023 13:49:26 12/24/2023 US, neck, soft tissue completed [address] [facility] [address] [place] [address] , [place], [address], 12/27/2023 16:21:41 02/16/2024 MAMMO, screening, digital, bilateral completed [facility] [address] [facility], [place], [address], 04/28/2024 12:25:02 02/22/2024 CT, neck, soft tissue, w/ contrast completed [facility] [address] [facility] [address], [place], [address], 04/28/2024 12:25:02 02/25/2024 MAMMO, screening, digital, bilateral completed [facility] [address] [facility] [address], [place], [address], 04/28/2024 12:25:02 02/25/2024 MAMMO, screening, digital, bilateral completed [facility] [address] [facility] [address], [place], [address], 04/28/2024 12:25:01 02/29/2024 XR, chest, 2 view completed [facility] [address] [place] [address] , [place], [address], 04/28/2024 12:25:01 05/26/2024 CT, abdomen + pelvis, w/o contrast completed [address] [place], [address], 05/30/2024 15:14:54 08/16/2024 US, echocardiogram completed [address] [facility] [address] , [place], [address], 08/18/2024 08:50:34 09/07/2024 MAMMO, screening, digital, bilateral completed [facility] [address] [facility] [address], [place], [address], 09/08/2024 09:20:45 11/06/2024 CT, heart, w/o contrast, w/ coronary calcium score completed [facility] [address] [facility], [place], [address], 11/10/2024 06:43:27 Procedure Notes None recorded. Medical Equipment None Reported. Allergies No known drug allergies Medications Name Sig Start Date Stop Date Status Note LastModified by Organization Details LastModified Time carvedilol 6.25 mg tablet active Not Available Not Available Not Available prednisone 10 mg tablet 5 tabs x 2 days4 tabs x 2 days3 tabs x 2 days2 tabs x 2 days1 tab x 2 days 04/28 completed Not Available Not Available Not Available doxycycline hyclate 100 mg capsule Take 1 capsule twice a day by oral route for 14 days. 01/07 completed Not Available Not Available Not Available benzonatate 200 mg capsule Take 1 capsule 3 times a day by oral route as needed for 14 days. 04/28 completed Not Available Not Available Not Available methylpheni date 10 mg tablet ONE TAB ONCE PER DAY active Not Available Not Available No t Available methylpheni date 5 mg tablet 12/22 completed Not Available Not Available Not Available dextroamphe tamine-amph etamine 10 mg tablet Take 1 tablet every day by oral route as needed for 30 days. active Not Available Not Available No t Available Zithromax Z-Jevon 250 mg tablet TAKE 2 TABLETS (500 MG) BY ORAL ROUTE ONCE DAILY FOR 1 DAY THEN 1 TABLET (250 MG) BY ORAL ROUTE ONCE DAILY FOR 4 DAYS 12/22 completed Not Available Not Available Not Available methylpheni date ER 54 mg tablet,exte nded release 24 hr 03/28 completed Not Available Not Available Not Available amlodipine 5 mg tablet TAKE ONE TAB QD active Not Available Not Available No t Available ciprofloxac in 500 mg tablet Take 1 tablet every 12 hours by oral route for 7 days. 04/28 completed Not Available Not Available Not Available sulfamethox azole 800 mg-trimetho prim 160 mg tablet 03/28 completed Not Available Not Available Not Available triamcinolo ne acetonide 0.1 % topical cream 02/02 completed Not Available Not Available Not Available dexmethylph enidate 10 mg tablet 08/05 completed Not Available Not Available Not Available dextroamphe tamine-amph etamine ER 20 mg 24hr capsule,ext end release 02/02 completed Not Available Not Available Not Available triamcinolo ne acetonide 0.1 % topical ointment APPLY A THIN LAYER TO THE AFFECTED AREA(S) BY TOPICAL ROUTE 2 TIMES PER DAY 04/16 completed Not Available Not Available Not Available dextroamphe tamine-amph etamine ER 10 mg 24hr capsule,ext end release 02/02 completed Not Available Not Available Not Available codeine 10 mg-guaifene sin 100 mg/5 mL oral liquid Take 10 mL every 4 hours by oral route as needed. 2023 active Not Available Not Available Not Avai lable levofloxaci n 500 mg tablet Take 1 tablet every 24 hours by oral route for 7 days. 12/22 completed Not Available Not Available Not Available methylpredn isolone 4 mg tablets in a dose pack 24 mg PO on day 1, then decr. by 4 mg/day x5 days per dose pack instructi ons 04/07 completed Not Available Not Available Not Available albuterol sulfate HFA 90 mcg/actuati on aerosol inhaler Inhale 2 puffs every 4 hours by inhalatio n route as needed for 30 days. 04/28 completed Not Available Not Available Not Available methylpheni date ER 18 mg tablet,exte nded release 24 hr 03/28 completed Not Available Not Available Not Available doxycycline hyclate 100 mg tablet Take 1 tablet twice a day by oral route for 10 days. 04/28 completed Not Available Not Available Not Available fluticasone propionate 110 mcg/actuati on HFA aerosol inhaler Inhale 1 puff twice a day by inhalatio n route as directed for 30 days. active Not Available Not Available No t Available methylpheni date ER 36 mg tablet,exte nded release 24 hr 03/28 completed Not Available Not Available Not Available dextroamphe tamine-amph etamine ER 5 mg 24hr capsule,ext end release 04/07 completed Not Available Not Available Not Available escitalopra m 10 mg tablet active Not Available Not Available Not Available atomoxetine 25 mg capsule 02/02 completed Not Available Not Available Not Available atomoxetine 40 mg capsule 04/16 completed Not Available Not Available Not Available bupropion HCl XL 300 mg 24 hr tablet, extended release Take 1 tablet every day by oral route for 30 days. active Not Available Not Available No t Available bupropion HCl XL 150 mg 24 hr tablet, extended release Take 1 tablet every day by oral route for 30 days. active Not Available Not Available No t Available methylpheni date LA 20 mg biphasic 50-50 capsule,ext ended release 02/02 completed Not Available Not Available Not Available escitalopra m 5 mg tablet 12/22 completed Not Available Not Available Not Available nitrofurant oin monohydrate /macrocryst als 100 mg capsule Take 1 capsule every 12 hours by oral route for 7 days. 02/02 completed Not Available Not Available Not Available Procto-Med HC 2.5 % topical cream perineal applicator APPLY A THIN LAYER TO THE AFFECTED AREA(S) BY TOPICAL ROUTE 2-4 TIMESDAIL Y 09/20 completed Not Available Not Available Not Available Fluzone Quad (PF) 60 mcg (15 mcg x 4)/0.5 mL IM syringe 02/02 completed Not Available Not Available Not Available Vitals Date Recorded Body weight Body mass index (BMI) Body height Heart rate Oxygen saturation Oxygen saturation in Arterial blood by Pulse oximetry Systolic blood pressure Diastolic blood pressure Provider Name and Address Organization Details Last Updated DateTime 2 55151.5 4 g 33.4 kg/m2 167.64 cm 74 /min 97 % 97 % 110 mm[Hg] 76 mm[Hg] Shun Hernandez, DO [address] [place], [address] [place] [address] Internal Medicine 2 11:54:08 Date Recorded Body height Body mass index (BMI) Body weight Heart rate Oxygen saturation Oxygen saturation in Arterial blood by Pulse oximetry Systolic blood pressure Diastolic blood pressure Provider Name and Address Organization Details Last Updated DateTime 4 167.64 cm 33.2 kg/m2 41502.0 3 g 82 /min 96 % 96 % 124 mm[Hg] 80 mm[Hg] Dai Rodríguez [facility] 4 10:18:24 Date Recorded Body height Body mass index (BMI) Body weight Heart rate Oxygen saturation Oxygen saturation in Arterial blood by Pulse oximetry Systolic blood pressure Diastolic blood pressure Provider Name and Address Organization Details Last Updated DateTime 4 167.64 cm 37 kg/m2 891205. 65 g 73 /min 97 % 97 % 130 mm[Hg] 72 mm[Hg] Dai Rodríguez [facility] Internal Medicine 4 11:55:30 Social History Question Answer Notes LastModified by Organizat ion Details LastModified Time Tobacco Smoking Status Never Smoker Not Available [facility] 09/17/2020 03:36:23 What Was The Date Of Your Most Recent Tobacco Screening? 04/28/2024 [email or web address] Information not available 04/28/2024 Do You Or Have You Ever Used Any Other Forms Of Tobacco Or Nicotine? No [email or web address] Information not available 04/28/2024 Sex: Unknown Functional Status None recorded. Mental Status None recorded. Family History Relationship Description Onset Age of this Age Resolved Age Notes LastModified by Organization Details LastModified Time Mother Carcinoma of esophagus [email or web address] Not available 2023 12:18:13 Medical History No medical history recorded. Gynecological HistoryNo gynecological history recorded. Obstetrics History GPAL:G 0 P 0 0 0 0 Immunizations Vaccine Type Date Status Note Provider Nam e and Address Organization Details Recorded Time Influenza, split virus, quadrivalent, preservative 1 completed Shun Hernandez DO [address] [place] [address], [id number], [facility] 02/02/2022 11:54:41 COVID-19, mRNA, LNP-S, PF, 100 mcg/0.5mL dose or 50 mcg/0.25mL dose 1 completed Shun Hernandez DO [address] [place] [address], [phone], [facility] 02/02/2022 11:54:56 COVID-19, mRNA, LNP-S, PF, 100 mcg/0.5mL dose or 50 mcg/0.25mL dose 1 completed Shun Hernandez DO [address] [place] [address], [phone], [facility] 02/02/2022 11:55:01 COVID-19, mRNA, LNP-S, PF, 100 mcg/0.5mL dose or 50 mcg/0.25mL dose 1 completed Shun Hernandez DO [address] [place] [address], [phone], [facility] 02/02/2022 11:55:08 Influenza, split virus, quadrivalent, preservative 9 completed Not Available [facility] 05/18/2021 19:19:37 Past Encounters Encounter ID Performer Location Encounter Start Date Encounter Closed Date Diagnosis/Indication Diagnosis SNOMED-CT Code Diagnosis ICD10 Code Diagnosis Note [id number] ESME Victoria [facility] Internal Medicine [address] [place] [address],[place] [address] 03/28/2018 16:25:18 03/28/2018 17:07:52 Eczema 32519708 L30.9 alternate moisturizi ng with vaseline, to avoid overuse of triamcinol one [id number] [facility] [address] [facility],[place] [address] 08/05/2018 11:55:46 08/05/2018 13:49:17 External hemorrhoids 29007883 K64.4 bowel regimen increase fluids psyllium + stool softener + laxitive if needed goal is to have at least one nick-formed stool per day if hemorrhoid persists can refer out Dysuria 23278830 R30.0 [id number] Farzana [facility] [address] [facility] [place] [address] 09/20/2018 15:16:11 09/20/2018 15:48:34 Vertigo 166807845 R42 driving precaution s given like 22 etd Sensation of blocked ear 828385776 H93.299 likely 22 etd Cough 25838430 R05 Dysfunctio n of eustachian tube 25828898 H69.91 [id number] Shun Hernandez [facility] Internal Medicine [address] [facility] [place] [address] 04/07/2019 14:15:11 04/07/2019 14:50:25 Chronic constipation 169432238 K59.09 will stop the iron supp will cont metamucil daily also will add stool softener if by day 3 no bm she is to take miralax Dysphagia 65222175 R13.1 0 will order w/u [id number] Shun Hernandez [facility] Internal Medicine [address] [facility], [place] [address] 04/16/2020 15:10:36 04/16/2020 16:05:56 Obstipation 118673009 K59.00 told her needs to have her take meds for this Esophageal dysmotility 056963630 K22.4 has a sl pos test on her swallow study last yr given this and poss of laryngeal reflux will have her get seen by GI Intestinal obstruction 14578120 K56.609 will refer to GI [place] [id number] Shun Hernandez DO [facility] Internal Medicine [address] [facility] on [address],[place] [address] 02/02/2022 11:48:49 02/03/2022 10:21:26 Impaired fasting glycemia 623098045 R73.01 will get lab Gastroesop hageal reflux disease 924601149 K21.9 states not too bad takes med prn Intestinal obstruction 88972744 K56.609 this actually turned out to be her GB and is not approp dx also has been dx with chronic constipati on Intermitte nt palpitations 746527616 R00.2 Atypical chest pain 1025 44938 R07.89 [id number] VEE JIMENES [facility] Internal Medicine [address] [facility] on [address], [place] [address] 05/20/2022 09:45:26 05/20/2022 10:32:21 Acute sinusitis 59846950 J01.01 will start on abx Productive cough 2298662 5 R05.1 will start on cough suppressan t [id number] VEE JIMENES [facility] Internal Medicine [address] [facility] on [address], [place] [address] 12/17/2023 10:41:52 12/20/2023 15:03:52 Cough 08642449 R05.1 will set up with inhaler and cough medication Pneumonia 136130991 J18. 8 will start on levofloxac in and prednisone , big concern for pneumonia [id number] VEE JIMENES [facility] Internal Medicine [address] [facility] on [address], [place] [address] 01/07/2024 10:12:12 01/10/2024 14:46:17 Mass of neck 847843372 R22.[address] sinus since US and XR were negative but there is a mass that is noted on examcan't tell what it is do to difficulty seeing it where it lies Chronic cough 83675435 R 05.3 start maintenanc e inhaler Atypical chest pain 1025 55360 R07.89 has cardio fu next week Diabetes m ellitus screening 197922530 Z13.1 due for a1c screening [id number] VEE JIMENES [facility] Internal Medicine [address] [facility],[place] [address] 04/28/2024 11:43:02 04/28/2024 14:51:54 Depression screening 973634036 Z13.31 0 Chronic laryngitis 04236 006 J37.0 will see if we can have her see another office sooner than the fall Adult heal th examination 570475630 Z00.00 will recheck labs Abdominal pain 56896881 R10.0 having up sharp pain in her RUQ and LUQ Health Concerns Section Related Observation LastModified by Organization Detai ls LastModified Time None Recorded Concern Status LastModified by Organization Details LastModified Time None Recorded Advance Directives Directive None Recorded Payers Encounter Date Sequence Insurance Name Policy Number Policy Schmitz Covered Member ID Schmitz Member ID Guarantor Name 02/02/2022 1 [place] [facility] [place] [id number] Azul L Hailee [id number] 22 Azul Hailee 05/20/2022 1 [place] [facility] [place] [place] [id number] Azul L Hailee [id number] 22 Azul Hailee 12/17/2023 1 [place] [facility] ([place]) [id number] Azul L Hailee [id number] 22 Azul Hailee 01/07/2024 1 [place] [facility] [place] [id number] Azul L Hailee [id number] 22 Azul Hailee 04/28/2024 1 [place] [facility] ([place]) [id number] Azul L Hailee [id number] 22 Azul Hailee Notes Date Note Type Note Provider Name a nd Address Organization Details Recorded Time 2 text/html here for rechk and is doing ok overallrelates has been feeling good and no major issueshas had some discomfort to her lower legs and pos t kenes bilatstates haing pain at bottom of her foot on the right Shun Hernandez DO [address] [facility], [place], [address], [facility] Internal Medicine 02/02/2022 12:25:42 2 text/html c/o sinus congestion, cough tele-med phone callpatient consents to phone call the patient reports that she started with a sore throat then she developed sinus congestion and pressurethe patient reports that she was developing a cough, productive with green mucus, then came back to a dry coughstarting to worsen again probable sinus infection that her immune system can't kickCOVID-19 negative with three separate tests will start on cough syrup and z jevon VEE JIMENES [address] [place], [address], [facility] Internal Medicine 05/20/2022 10:29:51 4 text/html c/o sick symptoms The patient is participating in this appointment via telemedicine communication with a phone call/video calling service (AskU)The patient consents to use of these platforms in place of an in-person appointment due to either sick symptoms the patient is presenting with or current office closure due to COVID exposure in order to keep our office staff and patients safe The patient presents to the office today with concerns of sick symptoms including coughing (dry) dizziness, fatigue, feeling faint, sore throat with possible exudates no fever, no chills The symptoms started originally last weekThe patient reports exposure to who has symptoms similarThe patient symptoms mainly involves the cough, dizziness and sore throat and wheezing Pertinent comorbidities include n/a The patient symptoms are alleviated by restThe patient symptoms are exacerbated by activity The patient has tested for COVID-19 and the results was negative VEE JIMENES [address] [place], [address], [facility] Internal Medicine 12/17/2023 15:36:15 4 text/html c/o lesion in throat agreed to CT since I can't see exactly what it is, it is a fleshy possibly vascularizedhard to diagnosis since it is partly covered by her tongue and further back than I can realistically see without a scope still has coughmost likely related to reactive airway after having pneumoniaagreed to try an ICS inhaler everyday and albuterol as needed and prior to activity in the meantime needs routine lab work having occasionally left sided pain of her chest, sharp, quick, no correlation with activity and could be related to her coughing fits like a costal chondritishas cardio appt next week also already had echo and exercise stress test that were wnl VEE JIMENES [address] [place] [address], [address], [facility] Internal Medicine 01/07/2024 10:38:21 4 text/html Annual WellnessReported bypatient.Diet and Nutrition:healthy diet Fracture Risk:no history of fractures; no recent explained fracture; no sudden unexplained fractures; no previous musculoskeletal injuries Physical Activity:exercises on a regular basis; recent increase in physical activity; good physical condition Additional Lifestyle Factors:no tobacco use; no alcohol intake; stopped drinking alcohol Depression Risk:never feels sad, empty, or tearful; no loss of interest in activities; no significant changes in weight; no sleep disturbances or insomnia; no agitation; no loss of energy; no feelings of worthlessness or guilt; no thoughts of suicide; no history of depression; no history of mood disorders VEE JIMENES [address] [place], [address], [facility] Internal Medicine 04/28/2024 12:26:23 OBGyn Episode No OBEpisode recorded.
--- OUTSIDE RECORDS SUMMARY | 2025-01-19 09:43 | XMS_ITS | Data Portability ---
Author Organization [place] [facility], Allergy Address [address] [place] [address] Care Team Providers Care And Taxi Instructor Bus Trolley Name Role Phone ERIC ALANIS Primary Care Provider [phone] Assessment No assessment recorded. Plan of Treatment Reminders Order Date Submit Date Provider Last Modified By Organization Details Last Modified Time Details Appointments Establish ed 30 2024 10:00A M ABRAHAN Zimmer MD Not available Not available Not available Lab None recorded. Referral None recorded. Procedures None recorded. Surgeries None recorded. Imaging None recorded. Medication Orders omeprazol e 20 mg capsule,d elayed release 2023 024 [id number] [address] [place], [address], 09/18/2024 15:47:54 Patient TargetsNo targets recorded. Patient InstructionsNo instructions recorded. Reason for Referral None Reported. Results Created Date Observation Date Name Description Value Unit Range Abnormal Flag Note LastModifiedBy Organization Detail LastModifiedTime 09/22/2002/22/2024 CT, neck, soft tissu e, w/ contr ast No observ ation record ed. [email or web address] Not Available 2023 14:38:54 09/22/20 24 12/24/2023 US, head + neck, soft tissu e No observ ation record ed. [email or web address] Not Available 2023 14:39:48 01/19/20 25 01/15/2025 audio gram No observ ation record ed. [email or web address] Not Available 2024 08:43:50 Result Notes None recorded. 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 ABRAHAN Zimmer MD [address] [facility],[place] [address], [place], [address], [place] [facility] [place] 4 15:37:58 Gastroesoph ageal reflux disease without esophagitis 180290218 Active 2023 ABRAHAN Zimmer MD [address] [place] [address], [place], [address], [place] [facility] [place] 4 15:38:03 Dysfunction of bilateral eustachian tubes 8677908057737 100 Active 2023 ABRAHAN Zimmer MD [address] [place] [address], [facility] [place], [address], [place] [facility] [place] 4 15:38:08 Bilateral disorder of Eustachian tubes 6203008804740 107 Active 2024 MAURO FINCH [address] [facility],[place] [address], [facility] [place], [address], [place] [facility] 5 16:45:03 Problem Notes None recorded. Procedures Surgical History Date Name Laterality Status Provider Name and Address Organization Details Recorded Time 01/15/2025 Comp Audio with Tymps (94697 & 28013) completed MAURO FINCH [address] [facility],[address], [address], [place] - [facility] 01/15/2025 16:44:54 09/18/2024 FFL_RE completed ABRAHAN ALEXANDER MD [address] [facility],[address], [address], [place] [facility] [place] 09/18/2024 15:47:16 Imaging Results Imaging Date Name Status LastModified by Organiz ation Details LastModified Time 02/22/2024 CT, neck, soft tissue, w/ contrast completed Information not available 09/22/2024 14:38:54 12/24/2023 US, head + neck, soft tissue completed Information not available 09/22/2024 14:39:48 01/15/2025 audiogram [place] [address] Information no t available 01/18/2025 08:43:50 Procedure Notes None recorded. Medical Equipment None Reported. Medications Name Sig Start Date Stop Date Status Note LastModified by Organization Details LastModified Time atorvastatin 40 mg tablet active Not Available Not Available No t Available carvedilol 12.5 mg tablet active Not Available Not Available No t Available methylphenidate 10 mg tablet active Not Available Not Available Not Available amlodipine 5 mg tablet active Not Available Not Available Not Available omeprazole 20 mg capsule,delayed release TAKE ONE CAPSULE BY MOUTH ON AN EMPTY STOMACH 30 MINUTES BEFORE EATING EVERY DAY active Not Available Not Available No t Available escitalopram 10 mg tablet active Not Available Not Available No t Available bupropion HCl XL 300 mg 24 hr tablet, extended release active Not Available Not Available Not Available Vitals Date Recorded Body height Body mass index (BMI) Body weight Provider Name and Address Organization Details Last Updated DateTime 01/15/2025 167.64 cm 36.3 kg/m2 537169.28 [facility] 01/15/2025 15:49:03 Date Recorded Body height Body mass index (BMI) Body weight Provider Name and Address Organization Details Last Updated DateTime 09/18/2024 167.64 cm 36.3 kg/m2 526234.28 g [facility] 09/18/2024 15:18:04 Social History None recorded. Functional Status None recorded. Mental Status None recorded. Family History Nothing Reported. Medical History No medical history recorded. Gynecological HistoryNo gynecological history recorded. Obstetrics History GPAL:G 0 P 0 0 0 0 Past Encounters Encounter ID Performer Location Encounter Start Date Encounter Closed Date Diagnosis/Indication Diagnosis SNOMED-CT Code Diagnosis ICD10 Code Diagnosis Note [id number] ABRAHAN ALEXANDER MD [facility] [address] [place] [address] 09/18/2024 14:46:20 09/18/2024 15:45:16 Benign neoplasm of tonsil 99661488 D10.4 Benign appearance . No CT correlate. Gave reassuranc e. Will reassess at 4 month f/u. Gastroesop hageal reflux disease without esophagitis 563997988 K21.9 Exam was benign. Laryngosco py showed cobbleston ing. I feel the symptoms are likely due to extra esophageal reflux disease. We will begin a six-week trial of DAILy omeprazole which was sent to their pharmacy. We will plan a follow up in 3-4 months to reassess. Dysfunctio n of bilateral eustachian tubes 7056445934 678364 H69.93 suspect ETD. [place] [id number] ABRAHAN ALEXANDER MD [facility] [address] [place] [address] 01/15/2025 15:16:11 01/15/2025 17:10:45 Bilateral disorder of Eustachian tubes 0182257851 140568 H69.93 Audiologic al evaluation results: 01/15/2025Ri ght ear:{{Norm al* Normal through 2 kHz Mild M oderate Mo derately-s evere Rosanne re Profoun d}} {{hearing* hearing. sloping to a mild slopi ng to a moderate s loping to moderately severe slo ping to severe slo ping to profound f lat high frequency low frequency mid frequency cookie bite marte curve}} {{with* se nsorineura l hearing loss with condu ctive hearing loss with mixed hearing loss with}} {{excellen t* good fa ir poor no measurable }} word recognitio n.Left ear:{{Norm al* Normal through 2 kHz Mild M oderate Mo derately-s evere Rosanne re Profoun d}} {{hearing* hearing. sloping to a mild slopi ng to a moderate s loping to moderately severe slo ping to severe slo ping to profound f lat high frequency low frequency mid frequency cookie bite marte curve}} {{with* se nsorineura l hearing loss with condu ctive hearing loss with mixed hearing loss with}} {{excellen t* good fa ir poor no measurable }} word recognitio n. Tympanomet ry:Right Ear:{{Type A* Type As Type Ad Type C Type C, shallow & rounded Ty pe B Type B with large volume Cou ld not maintain a hermetic seal}}Left Ear:{{Type A* Type As Type Ad Type C Type C, shallow & rounded Ty pe B Type B with large volume Cou ld not maintain a hermetic seal}} Hearing was normal. She may have a problem with auditory processing . I discussed she can practice sound localizati on and see how much trouble she has with that. I discussed I could try and find a center that offers auditory processing testing if she prefers. Benign alyx plasm of tonsil 24291897 D10.4 Benign appearance . No CT correlate. Gave reassuranc e. Will reassess at 6 month since it has been stable. Gastroesop hageal reflux disease without esophagitis 244622490 K21.9 Throat symptoms improved in some degree with omeprazole . OK to taper off. Health Concerns Section Related Observation LastModified by Organization Detai ls LastModified Time None Recorded Concern Status LastModified by Organization Details LastModified Time None Recorded Advance Directives Directive None Recorded Payers Encounter Date Sequence Insurance Name Policy Number Policy Schmitz Covered Member ID Schmitz Member ID Guarantor Name 09/18/2024 1 [facility]: [facility] [id number] Azul L Hailee [id number] 22 Azul L Hailee 01/15/2025 1 [facility]: [facility] ([facility] [id number] Azul L Hailee [id number] 22 Azul L Hailee Notes Date Note Type Note Provider Name and Address Organization Details Recorded Time 09/18/2024 text/html This past spring she was experiencing recurrent throat irritation. She has one tonsil that had a spot that was a yellowish culture. She had some imaging. It has not changed. It is perhaps more white now. She reports her ears feel blocked and sometime it affects her equilibrium. She also reports intermittent hoarseness. She has some vocal fatigue. Had a CT neck with contrast 02/2024 which did not show any acute pathology. She does not smoke. Sometimes has trouble swallowing dry foods which may her cough. Has occasional heartburn. Takes prilosec PRN. ABRAHAN ALEXANDER MD [address] [place] [address],[place] [address], [place], [address], [facility] - [facility] 09/18/2024 15:47:53 01/15/2025 text/html This past spring she was experiencing recurrent throat irritation. She did a trial of omeprazole which seemed to help. Her hoarseness has improved. She still notes a tonsil lesion but it has not changed in size. She notes some trouble with sound localization and sometimes knowing what was said. ABRAHAN ALEXANDER MD [address] [place] [address], [place], [address], [facility] - [facility] 01/15/2025 17:15:10 OBGyn Episode No OBEpisode recorded.
[2025-01-19 10:09] LABS: MANUAL DIFF FLAG NO
[2025-01-19 10:21] LABS: Basophils Percent Auto 0.5 % (0-2); Eosinophils Absolute Auto 0.2 X10*3/uL (0.0-0.4); Eosinophils Percent Auto 2.7 % (0-4); Hematocrit 36.9 % (37.0-47.0); Imm Gran Abs Auto 0.02 X10*3/uL (0.00-0.03); Imm Gran Pct Auto 0.3 % (0.0-0.4); Lymphocytes Absolute Auto 1.4 X10*3/uL (1.2-4.9); Lymphocytes Percent Auto 19.1 % (20-40); Mean Corpuscular HGB Conc 32.5 g/dl (31.0-35.0); Mean Corpuscular Hemoglobin 27.3 pg (27.0-33.0); Mean Corpuscular Volume 83.9 fL (80.0-98.0); Mean Platelet Volume 8.9 fL (9.4-12.3); Monocytes Absolute Auto 0.4 X10*3/uL (0.1-1.2); Monocytes Percent Auto 5.5 % (2-11); Neutrophils Absolute Auto 5.2 x10*3/uL (2.0-8.3); Neutrophils Percent Auto 71.9 % (45-73); Platelet Count 341 X10*3/uL (160-400); Red Cell Distribution Width 13.1 % (11.0-16.0); White Blood Count 7.3 X10*3/uL (4.8-10.8)
[2025-01-19 10:27] LABS: Estimated Average Glucose 134 mg/dL; Hemoglobin A1c % 6.3 % (<6.0)
[2025-01-19 10:37] LABS: Alanine Aminotransferase 43 U/L (0-31); Alkaline Phosphatase 101 U/L (39-117); Anion Gap 12 (12-20); Aspartate Amino Transferase 33 U/L (5-31); Bilirubin Total 0.4 mg/dL (0.0-1.0); Blood Urea Nitrogen 15 mg/dL (9-16); Calcium 9.5 mg/dL (8.4-10.2); Carbon Dioxide 25 mmol/L (22-29); Chloride 105 mmol/L (96-108); Cholesterol 148 mg/dL (<200); Estimated Glomerular Filt Rate > 60; Glucose Random 122 mg/dL (60-115); HDL Cholesterol 41 mg/dL (>40); LDL Cholesterol Calculated 70 mg/dL (<100); Potassium 4.3 mmol/L (3.3-5.1); Sodium 138 mmol/L (135-145); Total Protein 7.2 g/dL (6.5-8.0); Triglycerides 189 mg/dL (<150)
[2025-01-19 10:57] LABS: TSH reflex Free T4 1.59 uIU/mL (0.32-4.0); Vitamin D 25-OH Total 17.9 ng/mL (>30)
== END 2025-01-19 08:59 | disposition home or self-care (01) ==
LOC: HO.HMGCLDS 08:58
PROVIDERS: PCP Internal Medicine; Visit Provider Physician Assistant
DX: Z00.00 Encounter for general adult medical examination without abnormal findings (principal); Z13.1 Encounter for screening for diabetes mellitus; Z13.6 Encounter for screening for cardiovascular disorders
CPT/HCPCS: 36415; 80053; 80061; 82306; 83036; 84443; 85025

== ENCOUNTER 2025-05-25 11:46 | Outpatient (REF) | payer BC, SELFPAY ==
--- OUTSIDE RECORDS SUMMARY | 2025-05-25 12:15 | XMS_ITS | Data Portability ---
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 REVIEW OF PRIOR EXTERNAL NOTES/RESULTS, ORDERING OF TEST(S) CATEGORY 2. ASSESSMENT REQUIRING INDEPENDENT HISTORIAN(S) INCLUDE WHO THE HISTORIAN IS AND RELATION TO PT AND WHY PT IS UNABLE TO GIVE COMPLETE HISTORY ELEMENT 3: RISK (LOW) RISK OF COMPLICATIONS AND/OR MORBIDITY OR MORTALITY OF PATIENT MANAGEMENT PROVIDER MUST THOROUGHLY DOCUMENT ALL OF THE ELEMENTS COVERED Not available 04/03/2025 15:00:19 Plan of Treatment Reminders Order Date Submit Date Provider Last Modified By Organization Details Last Modified Time Details Appointments ANNUAL EXAM 2024 03:30P M VEE JIMENES Not available Not available Not available Lab CMP, serum or plasma 2023 024 [facility], [address] [place] [address], [place], [address], 05/01/2024 11:56:45 CBC w/ auto diff 2023 024 [facility], [address] [place] [address], [address], 04/28/2024 12:10:53 lipid panel, blood 2023 024 [facility], [address] [place] [address], [address], 04/28/2024 12:10:53 vitamin D, 25-hydro xy, total, serum 2023 024 [facility], [address] [place] [address], [address], 04/28/2024 12:10:54 TSH + free T4, serum 2023 024 [facility], [address] [place] [address], [address], 04/28/2024 12:10:54 hemoglob in A1c, QN, blood 2023 024 [facility], [address] [place] [address], [address], 04/28/2024 12:10:54 vitamin B12 + folate, serum or blood 2023 024 [facility], [address] [place] [address], [address], 04/28/2024 12:10:53 Referral otolaryn gologist referral 2023 024 talya Sommers MD, [address] [place], [address], 05/02/2024 08:35:37 Procedures None recorded . Surgeries None recorded . Imaging MR, angiogra m, abdomen, w/wo contrast - Not Required Procedur e codes: 11922 Resoluti on: Complete d on 04/25/20 25 at 08:56 am. 2024 025 [facility], [address] [place], [address], 04/27/2025 08:38:26 CT, abdomen + pelvis, w/o contrast - Not Required Procedur e codes: 65619 Call Referenc e #: [id number] Resoluti on: Complete d on 01/31/20 25 at 08:50 am. Call ref #[id number]. 2024 025 [facility], [address] [place] [address], [address], 01/31/2025 08:13:34 US, upper extremit y, nonvascu lar 2024 025 [facility], [address] [place] [address], [address], 01/26/2025 08:54:11 CT, abdomen + pelvis, w/o contrast - NOT REQUIRED Procedur e codes: 34412 Call Referenc e #: [id number] Resoluti on: Complete d on 05/01/20 24 at 11:28 am. Call ref #[id number] 125AM. had randi nai removed 2023 024 [email or web address] Not available 05/02/2024 08:37:31 Medication Orders azithrom ycin 250 mg tablet 2024 025 [id number], [place], [address], 04/03/2025 15:20:06 methylpr ednisolo ne 4 mg tablets in a dose pack 2024 025 [id number], [address] [place], [address], 04/10/2025 15:33:58 amoxicil reinier 875 mg tablet 2024 025 [facility], [address] [place], [address], 01/31/2025 13:55:15 predniso ne 10 mg tablet 2024 025 [facility], [address] [place], [address], 04/10/2025 15:34:18 Wegovy 0.25 mg/0.5 mL subcutan eous pen injector 2024 025 [facility], [address] [place], [address], 04/10/2025 15:34:03 Patient TargetsNo targets recorded. Patient InstructionsNo instructions recorded. 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 [address] [facility], [place], [address], 05/30/2024 15:14:54 08/18/20 24 08/16/2024 , echoc ardio gram No observ ation record ed. [address] [facility] [address], [place], [address], 08/18/2024 08:50:34 09/07/20 24 09/07/2024 MAMMO , scree néstor, digit al, bilat eral No observ ation record ed. [facility] [address] [facility] [address], [place], [address], 09/08/2024 09:20:45 11/06/20 24 11/06/2024 CT, heart , w/o contr ast, w/ coron eusebio calci um score No observ ation record ed. [email or web address] [facility] [address], [place], [address], 11/10/2024 06:43:27 02/17/20 25 02/16/2025 US, upper extre mity, nonva scula r No observ ation record ed. [email or web address] [facility] [address] [place] [address] [place], [address], 02/19/2025 09:22:30 02/20/20 25 02/16/2025 CT, abdom en + pelvi s, w/o contr ast No observ ation record ed. [email or web address] [facility] [address] [facility], [place], [address], 02/20/2025 08:56:32 04/12/20 25 04/12/2025 MAMMO , scree néstor, digit al, bilat eral No observ ation record ed. [facility] [address] [facility] [address], [place], [address], 04/13/2025 08:40:14 04/17/20 25 04/17/2025 MAMMO , unila teral , left and US, breas t, left No observ ation record ed. [address] [facility] [address] [facility] [address], [place], [address], 04/17/2025 16:27:55 04/26/20 25 04/26/2025 MAMMO , scree néstor, digit al, bilat eral No observ ation record ed. [address] [facility] [address] [facility] [address], [place], [address], 04/27/2025 08:58:46 05/03/20 25 04/26/2025 MAMMO , scree néstor, digit al, bilat eral No observ ation record ed. [facility] [address] [facility] [address], [place], [address], 05/04/2025 18:30:10 05/03/20 25 04/26/2025 Breas t Biops y w/ Local izati on & US Janusz nce (PROC ) No observ ation record ed. [facility] [address] [place], [address], 05/04/2025 18:30:25 05/24/20 25 05/14/2025 MR, angio gram, abdom en, w/wo contr ast No observ ation record ed. [facility] [address] [place], [address], 05/24/2025 12:23:37 Result Notes None recorded. Problems Name Problem SNOMED Code Status Onset Date Resolution Date Notes Provider Name and Address Organization Details Recorded Time Electroc ardiogra m abnormal 247812425 Active 2021 VEE JIMENES [address] [place], [address], [facility] 2 11:23:12 Acute sinusiti s 17863762 Active 2021 VEE JIMENES [address] [place], [address], [facility] 2 10:22:40 Producti ve cough 86899990 Active 2021 VEE JIMENES [address] [place], [address], [facility] 2 10:22:59 Allergic reaction to drug 736368535 Active 2021 VEE JIMENES [address] [place] [address], [address], [facility] 2 14:00:51 Acute bronchit is 20085662 Active 2021 VEE JIMENES [address] [place], [address], [facility] 2 16:25:16 Sleep apnea 21759836 Active 2022 VEE JIMENES [address] [place], [address], [facility] 3 12:33:06 Cough 37528479 Active 2023 VEE JIMENES [address] [place], [address], [facility] 4 15:29:39 Pneumoni a 484749712 Active 2023 VEE JIMENES [address] [place], [address], [facility] 4 15:30:59 Peritons illar abscess 94517472 Active 2023 VEE JIMENES [address] [place], [address], [facility] 4 11:46:41 Mass of neck 675845536 Active 2023 VEE JIMENES [address] [place], [address], [facility] 4 13:50:00 Chronic cough 87934710 Active 2023 VEE JIMENES [address] [place], [address], [facility] 4 10:27:43 Atypical chest pain 365081006 Active 2023 VEE JIMENES [address] [place], [address], [facility] 4 10:28:56 Chronic laryngit is 40628684 Active 2023 VEE JIMENES [address] [place], [address], [facility] 4 12:04:53 Abdomina l pain 39333661 Active 2023 VEE JIMENES [address] [place], [address], [facility] 4 12:11:42 Mass of upper limb 229050934 Active 2024 VEE JIMENES [address] [place] [address], [address], [facility] 5 11:33:44 Acute bacteria l sinusiti s 33510887 Active 2024 VEE JIMENES [address] [place] [address], [address], [facility] 5 13:53:09 Asthmati c bronchit is 392134060 Active 2024 Shun Hernandez, DO [address] [place] [address], [address], [facility] 5 14:59:56 Lipoma of upper arm 585098603 Active 2024 Shun Hernandez, [address] [place] [address], [address], [facility] 5 23:21:12 Acute ischemic colitis 23688460 Active 2024 VEE JIMENES [address] [place] [address], [address], [facility] 5 15:27:23 Left lower quadrant pain 983146973 Active 2024 VEE JIMENES [address] [place] [address], [address], [facility] 5 15:39:52 Impaired fasting glycemia 823656968 Active 2017 Dior patino [facility] 0 15:13:20 History of depressi on 663087709 Active 2017 Dior patino [facility] 0 15:13:20 Attentio n deficit hyperact ivity disorder , predomin antly inattent cielo type 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 0 15:13:20 Degenera tion of interver tebral disc 91306428 Active [address] [facility] 0 15:13:20 Metaboli c syndrome X 408514853 Active [address] [facility] [address] [facility] 0 15:13:20 Morbid obesity 769327022 Completed 201704/07/2019 Shun Hernandez DO [address] [place] [address], [address], [facility] 9 14:34:58 Gastroes ophageal reflux disease 643459199 Active [address] [facility] [address] [facility] 0 15:13:20 Problem Notes None recorded. Procedures Surgical History Date Name Laterality Status Provider Name and Address Organization Details Recorded Time 025 Colonoscopy completed Shun Hernandez DO [address] [place] [address], [address], [facility] 04/20/2025 15:03:46 cholecystectomy completed VEE BOJORQUEZ [address] [place] [address], [address], [facility] 04/28/2024 12:17:44 Imaging Results None recorded. Procedure Notes None recorded. Medical Equipment None Reported. Allergies No known drug allergies Medications Name Sig Start Date Stop Date Status Note LastModified by Organization Details LastModified Time atorvastati n 40 mg tablet take one tab qd po active Not Available Not Available No t Available carvedilol 6.25 mg tablet 01/24 completed Not Available Not Available Not Available prednisone 10 mg tablet 5 tabs x 2 days4 tabs x 2 days3 tabs x 2 days2 tabs x 2 days1 tab x 2 days 04/10 completed Not Available Not Available Not Available doxycycline hyclate 100 mg capsule Take 1 capsule twice a day by oral route for 14 days. 01/07 completed Not Available Not Available Not Available carvedilol 12.5 mg tablet active Not Available Not Available Not Available azithromyci n 250 mg tablet TAKE 2 TABLETS BY MOUTH TODAY, THEN TAKE 1 TABLET DAILY FOR 4 DAYS DIRECTED active Not Available Not Available No t Available benzonatate 200 mg capsule Take 1 [...] oral route as needed for 30 days. 01/24 completed Not Available Not Available Not Available [...] completed Not Available Not Available Not Available amoxicillin 875 mg tablet Take 1 tablet every 12 hours by oral route for 10 days. 2024 active Not Available Not Available Not Avai lable dextroamphe tamine-amph etamine ER 20 mg 24hr [...] 4 hours by oral route as needed. 01/24 completed Not Available Not Available Not Available levofloxaci n 500 mg tablet Take 1 tablet every 24 hours by oral route for 7 days. 12/22 completed Not Available Not Available Not Available methylpredn isolone 4 mg tablets in a dose pack 24 mg PO on day 1, then decr. by 4 mg/day x5 days per dose pack instructi ons 04/10 completed Not Available Not Available Not Available [...] day by oral route for 30 days. 01/24 completed Not Available Not Available Not Available methylpheni date LA 20 mg biphasic 50-50 capsule,ext ended release 02/02 completed Not Available Not Available Not Available escitalopra m 5 mg tablet 01/24 completed Not Available Not Available Not Available [...] Available Not Available Not Available Fluzone Quad [id number] (PF) 60 mcg (15 mcg x 4)/0.5 mL IM syringe 02/02 completed Not Available Not Available Not Available Wegovy 1 mg/0.5 mL subcutaneou s pen injector Inject 1 mg every week by subcutane ous route as directed for 30 days. 2024 active Not Available Not Available Not Avai lable Wegovy 0.25 mg/0.5 mL subcutaneou s pen injector Inject 0.25 mg every week by subcutane ous route for 30 days. 04/10 completed Not Available Not Available Not Available Wegovy 0.5 mg/0.5 mL subcutaneou s pen injector Inject 0.5 mg every week by subcutane ous route as directed for 30 days. 2024 active Not Available Not Available Not Avai lable Vitals Date Recorded Body height Body mass index (BMI) Body weight Heart rate Oxygen saturation Oxygen saturation in Arterial blood by Pulse oximetry Systolic And Diastolic Provider Name and Address Organization Details Last Updated DateTime 5 168.91 cm 38.5 kg/m2 510525. 35 g 74 /min 97 % 97 % 130/82 mm[Hg] Derrell Saldaña [facility] 5 10:58:30 Date Recorded Body height Heart rate Oxygen saturation Oxygen saturation in Arterial blood by Pulse oximetry Systolic And Diastolic Provider Name and Address Organization Details Last Updated DateTime 5 168.91 cm 77 /min 96 % 96 % 120/80 mm[Hg] Kari Olson [facility] 5 15:16:14 Date Recorded Body height Body mass index (BMI) Body weight Heart rate Oxygen saturation Oxygen saturation in Arterial blood by Pulse oximetry Systolic And Diastolic Provider Name and Address Organization Details Last Updated DateTime 4 167.64 cm 37 kg/m2 060752. 65 g 73 /min 97 % 97 % 130/72 mm[Hg] Dai Rodríguez [facility] 4 11:55:30 Social History Question Answer Notes LastModified by Organizat ion Details LastModified Time Tobacco Smoking Status Never Smoker Not Available [facility] 09/17/2020 03:36:23 What Was The Date Of Your Most Recent Tobacco Screening? 04/24/2025 [email or web address] Information not available 04/24/2025 Sex: Unknown Functional Status Question Answer Note LastModified by Organization D etails LastModified Time Do you or have you ever used any other forms of tobacco or nicotine? No [email or web address] Information not available 04/28/2024 Mental Status None recorded. Family History Relationship [...] quadrivalent, preservative 1 completed Shun Hernandez DO [address] [place] [address], [address], [facility] 02/02/2022 11:54:41 COVID-19, mRNA, LNP-S, PF, 100 mcg/0.5mL dose or 50 mcg/0.25mL dose 1 completed Shun Hernandez DO [address] [place] [address], [address], [facility] 02/02/2022 11:54:56 COVID-19, mRNA, LNP-S, PF, 100 mcg/0.5mL dose or 50 mcg/0.25mL dose 1 completed Shun Hernandez DO [address] [place] [address], [address], [facility] 02/02/2022 11:55:01 COVID-19, mRNA, LNP-S, PF, 100 mcg/0.5mL dose or 50 mcg/0.25mL dose 1 completed Shun Hernandez DO [address] [facility], [place], [address], [facility] 02/02/2022 11:55:08 Influenza, split virus, quadrivalent, preservative 9 completed Not Available [facility] 05/18/2021 19:19:37 Past Encounters Encounter ID Performer Location Encounter Start Date Encounter Closed Date Diagnosis/Indication Diagnosis SNOMED-CT Code Diagnosis ICD10 Code Diagnosis Note [id number] Shun Hernandez [facility] [address] [facility] [address] 03/28/2018 16:25:18 03/28/2018 17:07:52 Eczema 10949909 L30.9 alternate moisturizi ng with vaseline, to avoid overuse of triamcinol one [id number] Shun Hernandez DO [facility] [address] [facility],[place] [address] 08/05/2018 11:55:46 08/05/2018 13:49:17 External hemorrhoids 71819194 K64.4 bowel regimen increase fluids psyllium + stool softener + laxitive if needed goal is to have at least one nick-formed stool per day if hemorrhoid persists can refer out Dysuria 20033789 R30.0 [id number] Shun Hernandez DO [facility] [address] [facility],[place] [address] 09/20/2018 15:16:11 09/20/2018 15:48:34 Vertigo 984557573 R42 driving precaution s given like 22 etd Sensation of blocked ear 798597340 H93.299 likely 22 etd Cough 67933226 R05 Dysfunctio n of eustachian tube 41093082 H69.91 [id number] Shun Hernandez DO [facility] [address] [facility],[place] [address] 04/07/2019 14:15:11 04/07/2019 14:50:25 Chronic constipation 437451680 K59.09 will stop the iron supp will cont metamucil daily also will add stool softener if by day 3 no bm she is to take miralax Dysphagia 16647537 R13.1 0 will order w/u [id number] Shun Hernandez [facility] [address] [place] [address] 04/16/2020 15:10:36 04/16/2020 16:05:56 Obstipation 692236323 K59.00 told her needs to have her take meds for this Esophageal dysmotility 938730061 K22.4 has a sl pos test on her swallow study last yr given this and poss of laryngeal reflux will have her get seen by GI Intestinal obstruction 31129940 K56.609 will refer to GI dr for eval [place]oscop y [id number] Shun Hernandez [facility] [address] [place] [address] 02/02/2022 11:48:49 02/03/2022 10:21:26 Impaired fasting glycemia 953893090 R73.01 will get lab Gastroesop hageal reflux disease 129266577 K21.9 states not too bad takes med prn Intestinal obstruction 64732999 K56.609 this actually turned out to be her GB and is not approp dx also has been dx with chronic constipati on Intermitte nt palpitations 775497944 R00.2 Atypical chest pain 1025 77563 R07.89 [id number] Shun Hernandez [facility] [address] [facility],[place] [address] 05/20/2022 09:45:26 05/20/2022 10:32:21 Acute sinusitis 10062225 J01.01 will start on abx Productive cough 5012746 5 R05.1 will start on cough suppressan t [id number] Shun Hernandez [facility] [address] [place] [address] 12/17/2023 10:41:52 12/20/2023 15:03:52 Cough 94771778 R05.1 will set up with inhaler and cough medication Pneumonia 653978085 J18. 8 will start on levofloxac in and prednisone , big concern for pneumonia [id number] Shun Hernandez [facility] [address] [facility],[place] [address] 01/07/2024 10:12:12 01/10/2024 14:46:17 Mass of neck 812186052 R22.[address] sinus since US and XR were negative but there is a mass that is noted on examcan't tell what it is do to difficulty seeing it where it lies Chronic cough 27032046 R 05.3 start maintenanc e inhaler Atypical chest pain 1025 51134 R07.89 has cardio fu next week Diabetes m ellitus screening 078271803 Z13.1 due for a1c screening [id number] Shun Hernandez [facility] [address] [facility],[place] [address] 04/28/2024 11:43:02 04/28/2024 14:51:54 Depression screening 970338759 Z13.31 0 Chronic laryngitis 18964 006 J37.0 will see if we can have her see another office sooner than the fall Adult heal th examination 503036618 Z00.00 will recheck labs Abdominal pain 13780382 R10.0 having up sharp pain in her RUQ and LUQ [id number] Shun Hernandez [facility] [address] [facility],[place] [address] 01/24/2025 10:49:18 01/24/2025 14:55:48 Abdominal pain 73739689 R10.0 having up sharp pain in her RUQ Body mass index 30+ - obesity 974607476 Z68.38 HTN, DAMION, HLD, Obesity Mass of upper limb 88689 5008 R22.31 will set up with US as well [id number] Shun Hernandez [facility] [address] [facility] [address],[place] [address] 01/31/2025 13:33:00 01/31/2025 14:15:18 Acute bacterial sinusitis 31378210 J01.11 start amox and prednisone [id number] Shun Hernandez [facility] [address] [facility],[place] [address] 04/03/2025 11:28:12 04/03/2025 16:00:41 Asthmatic bronchitis 863903615 J45.909 [id number] Shun LiuAlyssa David, [facility] [address] [facility],[place] [address] 04/24/2025 14:58:17 04/24/2025 16:17:17 Acute ischemic colitis 03096348 K55.039 will set up with MRAhas f/u with GI on 05/14 Left lower quadrant pain 473366624 R10.32 improving Health Concerns Section Related Observation LastModified by Organization Detai ls LastModified Time None Recorded Concern Status LastModified by Organization Details LastModified Time None Recorded Advance Directives Directive None Recorded Payers Insurance Date Sequence Insurance Name Policy Number Policy Schmitz Covered Member ID Schmitz Member ID Guarantor Name 04/24/2025 1 [facility] [id number] Azul Stephen [id number] Azul Stephen Notes Date Note Type Note Provider Name and Address Organization Details Recorded Time 4 text/html Annual WellnessReported bypatient.Diet and Nutrition:healthy [...] no history of mood disorders VEE JIMENES [address] [place] [address], [address], [facility] 04/28/2024 12:26:23 5 text/html c/o abdominal pain and right arm lump? vitamin D def: the patient vit D is low, will start vitamin D supplementswill recheck in two to three months abdominal pain: right upper quadrantthe patient has hx of fatty liverrecommended f/u imaging from previous checkher LFT's were elevated from recent lab work IFG: the patient had an a1c of 6.3% with elevated random glucose, patient needs to work on diet and exerciserecommended starting wegovy for the BMI, glucose, sleep apnea, and HLD + HTN lipoma ? on the right upper arm, has intermittent painrecommended fu imaging as well to confirm VEE JIMENES [address] [place], [address], [facility] 01/24/2025 11:35:09 5 text/html c/o ?sinus infection The patient is participating in this appointment via telemedicine communication with a phone call/video calling service ([employer])The patient consents to use of these platforms in place of an in-person appointment due to either sick symptoms the patient is presenting with or current office closure due to COVID exposure in order to keep our office staff and patients safe reports post nasal, congestion, sore throat, headache/pressurethe patient reports that she thought it was allergies but it has sig progressed from this morning and it didn't improvedenies fever, chills, or other symptomsstarted yesterdayhx of sinus inf recommended start abx and predshe will be on a plane at the end of the week VEE JIMENES [address] [place], [address], [facility] 01/31/2025 13:57:23 5 text/html patient is evaluated via tele/video assessment per patient consent during current pandemic cough and congestion amnd feeling worse using mult otc meds anbd now worsening with productive cough and hearing wheeze has not tested for covidshe is at a convention in [place] but relates had some symptoms prior to this Shun Hernandez DO [address] [place], [address], [facility] 04/03/2025 15:23:00 5 text/html hospital f/u the patient reports that she developed acute onset constipation, hematochezia, abdominal pain, and nausea the patient reports that she was found to have ischemic colitis on colonoscopysig inflammation and poor perfusion to the bowel the patient reports that she has a f/u with the GI doctor on 05/14the patient reports that the patient has been passing gas, the patient reports that she also notes loud overactive bowel sounds recommended MRA for eval for mesenteric ischemia vs clotting/plaque build up that may have caused the loss of blood flow to the oxygen recommended starting stool softeneravoid laxatives at this time continue with bland light dietincrease fluid intake VEE JIMENES [address] [place] [address], [place], [address], [facility] 04/24/2025 15:43:35 OBGyn Episode No OBEpisode recorded.
--- OUTSIDE RECORDS SUMMARY | 2025-05-25 12:15 | XMS_ITS | Patient Health Record ---
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 Role Phone Shun Hernandez Primary Care Provider Jamison Abel Unavailable [phone] Reason For Referral No Information Medications Medication SIG (Take, Route, Fr equency, Duration) Notes Start Date End Date Status Strattera 25 MG 1 capsule Orally Once a day Active Ibuprofen 200 MG 1 tablet with food o r milk as needed Orally as needed Active Wellbutrin XL 300 MG 1 tablet in the mor néstor Orally Once a day for 30 day(s) Active Immunizations Vaccine Route Administration Date Status Comme nts Influenza Unknown 10/17/2019 Administered Social History Tobacco Use: Social History Observation Description Date Details (start date - stop date) Never Smoker NA - NA Tobacco Use/Smoking Question Answer Notes Patient is a nonsmoker Alcohol Screen Question Answer Notes Did you have a drink contain ing alcohol in the past year? Yes How often did you have a dri nk containing alcohol in the past year? Monthly or less (1 point) How many drinks did you have on a typical day when you were drinking in the past year? 1 or 2 drinks (0 point) How often did you have 6 or more drinks on one occasion in the past year? Never (0 point) Points 1 Interpretation Negative Section Notes: Nonsmoker; no sig alcohol Nonsmoker; no sig alcohol Problems Problem Type SNOMED Code ICD Code Onset Dates Problem Status W/U Status Risk Notes Problem 49874195 Rectal bleed (K62.5) Active confirmed Problem 86653424 Constipation, unspecified constipation type (K59.00) Active confirmed Problem 86048620 Pharyngoesophage al dysphagia (R13.14) Active confirmed Plan Of Treatment Pending Test Test Name Order Date XR BARIUM SWALLOW-ESOPHAGUS 09/24/2020 Future Test Test Name Order Date UPPER GI ENDOSCOPY 04/30/2020 COLONOSCOPY 04/30/2020 Insurance Providers Payer Name Payer Address Payer Phone Subscriber Number Group Number Insured Name Patient Relationship to Insured Coverage Start Date Coverage End Date [facility] [employer] PROF[employer]AL CLAIM[employer] [address] [place] [address] [phone] [id number] 2 IRVING RECINOS Self - patient is the insured Medical (General) History Medical History History ICD Code Denies ME,DM,CVA,Lung disease,renal dise ase ADHD Constipation Nonspecific dysphagia with B arium swallows in 2011 and in 2019 as described in the 04/30/2020 office note history--there was no description of a Zenker's diverticulum, esophageal obstruction, nor any specific esophageal abnormalities Negative EGD in 06/2020-no es ophagitis; proximal esophageal biopsies were negative for eosinophilic esophagitis Negative colonoscopy in 06/2020 Surgical History Surgery Date(Month/Year)
[2025-05-25 13:46] LABS: MANUAL DIFF FLAG NO
[2025-05-25 14:11] LABS: Hematocrit 37.1 % (37.0-47.0); Hemoglobin 12.2 g/dl (12.0-16.0); Imm Gran Abs Auto 0.02 X10*3/uL (0.00-0.03); Imm Gran Pct Auto 0.3 % (0.0-0.4); Lymphocytes Absolute Auto 1.6 X10*3/uL (1.2-4.9); Mean Corpuscular HGB Conc 32.9 g/dl (31.0-35.0); Mean Corpuscular Hemoglobin 28.0 pg (27.0-33.0); Mean Corpuscular Volume 85.3 fL (80.0-98.0); NRBC Abs Auto 0.000 X10*3/uL (0.0-0.012); NRBC Pct Auto 0.0 /100WBC (0.0-0.2); Platelet Count 357 X10*3/uL (160-400); Red Blood Count 4.35 X10*6/uL (4.20-5.50); White Blood Count 7.7 X10*3/uL (4.8-10.8)
[2025-05-25 14:49] LABS: Hemoglobin A1C 111.7316 umol/L; Total Hemoglobin (HGBA1C) 3271.3364 umol/L
[2025-05-25 14:58] LABS: Alanine Aminotransferase 36 U/L (0-31); Albumin Level 4.6 g/dL (3.5-5.0); Alkaline Phosphatase 101 U/L (39-117); Anion Gap 13 (12-20); Aspartate Amino Transferase 27 U/L (5-31); Blood Urea Nitrogen 20 mg/dL (9-16); Calcium 10.0 mg/dL (8.4-10.2); Carbon Dioxide 27 mmol/L (22-29); Chloride 105 mmol/L (96-108); Estimated Glomerular Filt Rate 58; Potassium 4.7 mmol/L (3.3-5.1); Sodium 140 mmol/L (135-145); Total Protein 6.9 g/dL (6.5-8.0)
== END 2025-05-25 11:47 | disposition home or self-care (01) ==
LOC: HO.HMGCLDS 11:46
PROVIDERS: PCP Internal Medicine; Visit Provider Physician Assistant
DX: R73.01 Impaired fasting glucose (principal); K55.039 Acute (reversible) ischemia of large intestine, extent unspecified
CPT/HCPCS: 36415; 80053; 83036; 85025; 85652; 86140

== ENCOUNTER 2025-05-31 08:21 | Outpatient (REF) | payer BC, SELFPAY ==
--- OUTSIDE RECORDS SUMMARY | 2025-05-31 08:25 | XMS_ITS | Patient Health Record ---
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 Role Phone Shun Hernandez Primary Care Provider Jamison Abel Unavailable [phone] Reason For Referral No Information Medications Medication [...] Problem Status W/U Status Risk Notes Problem 09855119 Rectal bleed (K62.5) Active confirmed Problem 80454258 Constipation, unspecified constipation type (K59.00) Active confirmed Problem 91808996 Pharyngoesophage al dysphagia (R13.14) Active confirmed Plan Of Treatment Pending Test Test Name Order Date XR BARIUM SWALLOW-ESOPHAGUS 09/24/2020 Future Test Test Name Order Date UPPER GI ENDOSCOPY 04/30/2020 COLONOSCOPY 04/30/2020 Insurance Providers Payer Name Payer Address Payer Phone Subscriber Number Group Number Insured Name Patient Relationship to Insured Coverage Start Date Coverage End Date [facility] [employer] PROFESSIONAL CLAIMS [address] [place] [address] [phone] [id number] 2 IRVING RECINOS Self - patient is the insured Medical (General) History Medical History History ICD Code Denies MT,DM,CVA,Lung disease,renal dise ase ADHD Constipation Nonspecific dysphagia [...]
--- OUTSIDE RECORDS SUMMARY | 2025-05-31 08:26 | XMS_ITS | Data Portability ---
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) : MDM LOW MUST MEET 2 OF [...] Last Modified Time Details Appointments ANNUAL EXAM 2025 03:30P M VEE JIMENES Not available Not available Not available Lab CMP, serum or plasma 2024 025 [facility], [address] [place] [address], [place], [address], 05/29/2025 16:06:06 urinalys is complete , reflex culture 2024 025 [facility], [address] [place] [address], [id number], 05/29/2025 16:06:06 magnesiu m, serum or plasma 2024 025 [facility], [address] [place] [address], [id number], 05/29/2025 16:06:06 PTH (parathy roid hormone) , intact + calcium, serum or plasma 2024 025 [facility], [address] [place] [address], [id number], 05/29/2025 16:06:06 phosphor us, serum or plasma 2024 025 [facility], [address] [place] [address], [address], 05/29/2025 16:06:06 CK (creatin e kinase), total, serum 2024 025 [facility], [address] [place] [address], [id number], 05/29/2025 16:06:06 protein: creatini ne ratio, urine 2024 025 [facility], [address] [place] [address], [address], 05/29/2025 16:06:[address] referral - patient is a 54 year old woman with recent acute ischemic colitis, follow up MRA showed 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 Surgeries None recorded . Imaging US, kidney 2024 [facility], [address] [place] [address], [address], 05/30/2025 09:04:10 MR, angiogra m, abdomen, w/wo contrast - Not Required Procedur e codes: 38777 Resoluti on: Complete d on 04/25/20 at 08:56 am. 2024 [facility], [address] [place] [address], [address], 04/27/2025 08:38:26 CT, abdomen + pelvis, w/o contrast - Not Required Procedur e codes: 70568 Call Referenc e #: [id number] Resoluti on: Complete d on 01/31/20 at 08:50 am. Call ref #[id number]. 2024 [facility], [address] [place] [address], [address], 01/31/2025 08:13:34 US, upper extremit y, nonvascu lar 2024 025 [facility], [address] [place] [address], [address], 01/26/2025 08:54:11 Medication Orders azithrom ycin 250 mg tablet 2024 025 [facility]armacy #[id number], [address] [place], [address], 05/29/2025 15:35:15 methylpr ednisolo ne 4 mg tablets in a dose pack 2024 025 [facility]/Pharmacy #[id number], [place], [address], 04/10/2025 15:33:58 amoxicil reinier 875 mg tablet 2024 025 [facility], [address] [place], [address], 05/29/2025 15:35:09 predniso ne 10 mg tablet 2024 025 [facility], [address] [place], [address], 04/10/2025 15:34:18 Wegovy 0.25 mg/0.5 mL subcutan eous pen injector 2024 025 [facility], [address] [place], [address], 04/10/2025 15:34:03 Patient TargetsNo targets recorded. Patient InstructionsNo instructions recorded. 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 Ischemic colitis hx of ischemic colitis, MRA showed celiac artery compression (possible relation) notes attached patient is a 54 year old woman with recent acute ischemic colitis, follow up MRA showed compression of celiac artery from the median arcuate ligament compressionstill having abdominal pain, bowel changes, between diarrhea and sig constipation (4 days wo bowel movement, then diarrhea)getting cramping and pain with bowel movement Referring Physician: Cheyanne Hunter, Internal Medicine, Encounter Date: 05/29/2025 Results Created Date Observation Date Name Description Value Unit Range Abnormal Flag Note LastModifiedBy Organization Detail LastModifiedTime 02/17/2002/16/2025 US, upper extre mity, nonva scula r No observ ation record ed. [email or web address] [facility] [address] [place] [address] , REBECCA Galvez, [address], 02/19/2025 09:22:30 02/20/2002/16/2025 CT, abdom en + pelvi s, w/o contr ast No observ ation record ed. [email or web address] [address], [place], [address], 02/20/2025 08:56:32 04/12/20 25 04/12/2025 MAMMO , scree néstor, digit al, bilat eral No observ ation record ed. [facility] [address], [place], [address], 04/13/2025 08:40:14 04/17/20 25 04/17/2025 MAMMO , unila teral , left and US, breas t, left No observ ation record ed. [address] Internal [facility] [address], [place], [address], 04/17/2025 16:27:55 04/26/20 25 04/26/2025 MAMMO , scree néstor, digit al, bilat eral No observ ation record ed. [address] [facility] [address], [place], [address], 04/27/2025 08:58:46 05/03/20 25 04/26/2025 MAMMO , scree néstor, digit al, bilat eral No observ ation record ed. [facility] [address], [place], [address], 05/04/2025 18:30:10 05/03/20 25 04/26/2025 Breas t Biops y w/ Local izati on & US Janusz nce (PROC ) No observ ation record ed. [facility] [address] [place], [address], 05/04/2025 18:30:25 05/24/20 25 05/14/2025 MR, angio gram, abdom en, w/wo contr ast No observ ation record ed. [facility] [address] [place], [address], 05/24/2025 12:23:37 Result Notes None recorded. Problems Name Problem SNOMED Code Status Onset Date Resolution Date Notes Provider Name and Address Organization Details Recorded Time Impaired fasting glycemia 746569099 [facility] 15:13:20 History of depressi on 028650885 [facility] 15:13:20 Attentio n deficit hyperact ivity disorder , predomin antly inattent cielo type 97753722 Active 2017 Dior Wayne [facility] 0 15:13:20 Degenera tion of interver tebral disc 73635645 Active 2017 cervical [facility] 0 15:13:20 Metaboli c syndrome X 767279810 Active 2017 Diorwalker Wayne [facility] 0 15:13:20 Morbid obesity 590427758 Completed 201704/07/2019 Shun Hernandez DO [address] [place], [address], [facility] 9 14:34:58 Gastroes ophageal reflux disease 014519770 Active 2017 [facility] 0 15:13:20 Electroc ardiogra m abnormal 301956361 Active 2021 VEE JIMENES [address] [place], [address], [facility] 2 11:23:12 Acute sinusiti s 86641796 Active 2021 VEE JIMENES [address] [place], [address], [facility] 2 10:22:40 Producti ve cough 04527150 Active 2021 VEE JIMENES [address] [place], [address], [facility] 2 10:22:59 Allergic reaction to drug 228169154 Active 2021 VEE JIMENES [address] [place], [address], [facility] 2 14:00:51 Acute bronchit is 60124545 Active 2021 VEE JIMENES [address] [place], [address], [facility] 2 16:25:16 Sleep apnea 98689619 Active 2022 VEE JIMENES [address] [place], [address], [facility] 3 12:33:06 Cough 66409543 Active 2023 VEE JIMENES [address] [place], [address], [facility] 4 15:29:39 Pneumoni a 006430594 Active 2023 VEE JIMENES [address] [place], [address], [facility] 4 15:30:59 Peritons illar abscess 32412802 Active 2023 VEE JIMENES [address] [place], [address], [facility] 4 11:46:41 Mass of neck 397920089 Active 2023 VEE JIMENES [address] [place], [address], [facility] 4 13:50:00 Chronic cough 92196394 Active 2023 VEE JIMENES [address] [place], [address], [facility] 4 10:27:43 Atypical chest pain 423875589 Active 2023 VEE JIMENES [address] [place], [address], [facility] 4 10:28:56 Chronic laryngit is 92399446 Active 2023 VEE JIMENES [address] [place], [address], [facility] 4 12:04:53 Abdomina l pain 46109636 Active 2023 VEE JIMENES [address] [place] [address], [address], [facility] 4 12:11:42 Mass of upper limb 821819309 Active 2024 VEE JIMENES [address] [place] [address], [address], [facility] 5 11:33:44 Acute bacteria l sinusiti s 05849202 Active 2024 VEE JIMENES [address] [place] [address], [address], [facility] 5 13:53:09 Asthmati c bronchit is 558880277 Active 2024 Shun Hernandez DO [address] [place] [address], , [facility] 5 14:59:56 Lipoma of upper arm 437769627 Active 2024 Shun Hernandez DO [address] [place] [address], , [facility] 5 23:21:12 Acute ischemic colitis 97583711 Active 2024 VEE JIMENES [address] [place] [address], , [facility] 5 15:27:23 Left lower quadrant pain 770064243 Active 2024 VEE JIMENES [address] [place] [address], [address], [facility] 5 15:39:52 Ischemic colitis 80701622 Active 2024 VEE JIMENES [address] [place], [address], [facility] 15:48:21 Acute kidney injury 91594132 Active 2024 VEE JIMENES [address] [place], [address], [facility] 15:58:23 Problem Notes None recorded. Procedures Surgical History Date Name Laterality Status Provider Name and Address Organization Details Recorded Time 025 Colonoscopy completed Shun Hernandez DO [address] [place], [address], [facility] 04/20/2025 15:03:46 cholecystectomy completed VEE BOJORQUEZ [address] [place], [address], [facility] 04/28/2024 12:17:44 Imaging Results None recorded. [...] Available Not Available carvedilol 12.5 mg tablet TAKE ONE TABLET BID 2024 active Not Available Not Available Not Avai lable azithromyci n 250 mg tablet TAKE 2 TABLETS BY MOUTH TODAY, THEN TAKE 1 TABLET DAILY FOR 4 DAYS DIRECTED 05/29 completed Not Available Not Available Not Available [...] hours by oral route for 10 days. 05/29 completed Not Available Not Available Not Available [...] Not Available escitalopra m 10 mg tablet TAKE ONE TABLET QD PO active Not Available Not Available No t Available atomoxetine 25 mg capsule 02/02 completed [...] as directed for 30 days. 2024 active hold for now Not Available Not Available Not Available Wegovy 0.25 mg/0.5 mL subcutaneou s pen injector Inject 0.25 mg every week by subcutane ous route for 30 days. 04/10 completed Not Available Not Available Not Available Wegovy 0.5 mg/0.5 mL subcutaneou s pen injector Inject 0.5 mg every week by subcutane ous route as directed for 30 days. 05/29 completed Not Available Not Available Not Available Vitals Date Recorded Body height Body mass index (BMI) Body weight Heart rate Oxygen saturation Oxygen saturation in Arterial blood by Pulse oximetry Systolic And Diastolic Provider Name and Address Organization Details Last Updated DateTime 5 168.91 cm 38.5 kg/m2 542757. 35 g 74 /min 97 % 97 % 130/82 mm[Hg] Derrell Saldaña [facility] 5 10:58:30 Date Recorded Body height Heart rate Oxygen saturation Oxygen saturation in Arterial blood by Pulse oximetry Systolic And Diastolic Provider Name and Address Organization Details Last Updated DateTime 5 168.91 cm 77 /min 96 % 96 % 120/80 mm[Hg] Kari Olson [facility] 5 15:16:14 Date Recorded Body height Body mass index (BMI) Body weight Heart rate Oxygen saturation Oxygen saturation in Arterial blood by Pulse oximetry Systolic And Diastolic Provider Name and Address Organization Details Last Updated DateTime 5 168.91 cm 35.1 kg/m2 503232. 12 g 75 /min 96 % 96 % 112/64 mm[Hg] Kari Olson [facility] 5 15:39:47 Social History Question Answer Notes LastModified by Organizat ion Details LastModified Time Tobacco Smoking Status Never Smoker Not Available [facility] 09/17/2020 03:36:23 What Was The Date Of Your Most Recent Tobacco Screening? 05/29/2025 [email or web address] Information not available 05/29/2025 Sex: Unknown Functional Status Question Answer Note LastModified by Organization D etails LastModified Time Do you or have you ever used any other forms of tobacco or nicotine? No Information not available 04/28/2024 Mental Status None [...] quadrivalent, preservative 1 completed Shun Hernandez DO [address] [place] [address], [address], [facility] 02/02/2022 11:54:41 COVID-19, mRNA, LNP-S, PF, 100 mcg/0.5mL dose or 50 mcg/0.25mL dose 1 completed Shun Hernandez DO [address] [place] [address], [address], [facility] 02/02/2022 11:54:56 COVID-19, mRNA, LNP-S, PF, 100 mcg/0.5mL dose or 50 mcg/0.25mL dose 1 completed Shun Hernandez DO [address] [place] [address], [address], [facility] 02/02/2022 11:55:01 COVID-19, mRNA, LNP-S, PF, 100 mcg/0.5mL dose or 50 mcg/0.25mL dose 1 completed Shun Hernandez DO [address] [place] [address], [address], [facility] 02/02/2022 11:55:08 Influenza, split virus, quadrivalent, preservative 9 completed Not Available [facility] 05/18/2021 19:19:37 Past Encounters Encounter ID Performer Location Encounter Start Date Encounter Closed Date Diagnosis/Indication Diagnosis SNOMED-CT Code Diagnosis ICD10 Code Diagnosis Note [id number] [facility] [address] [facility] [address] [facility], [place] [place] [facility] [place] [address] 03/28/2018 16:25:18 03/28/2018 17:07:52 Eczema 18557143 L30.9 alternate moisturizi ng with vaseline, to avoid overuse of triamcinol one [id number] [facility] [address] [facility],[place] [address] 08/05/2018 11:55:46 08/05/2018 13:49:17 External hemorrhoids 98004444 K64.4 bowel regimen increase fluids psyllium + stool softener + laxitive if needed goal is to have at least one nick-formed stool per day if hemorrhoid persists can refer out Dysuria 01872312 R30.[id number] [facility] [address] [facility], [place] [address] 09/20/2018 15:16:11 09/20/2018 15:48:34 Vertigo 210651099 R42 driving precaution s given like 22 etd Sensation of blocked ear 991672459 H93.299 likely 22 etd Cough 86075639 R05 Dysfunctio n of eustachian tube 65388289 H69.[id number] [facility] [address] [facility],[place] [address] 04/07/2019 14:15:11 04/07/2019 14:50:25 Chronic constipation 407960915 K59.09 will stop the iron supp will cont metamucil daily also will add stool softener if by day 3 no bm she is to take miralax Dysphagia 68973805 R13.1 0 will order w/u [id number] [facility] [address] [facility] [address],[place] [address] 04/16/2020 15:10:36 04/16/2020 16:05:56 Obstipation 736464312 K59.00 told her needs to have her take meds for this Esophageal dysmotility 224375806 K22.4 has a sl pos test on her swallow study last yr given this and poss of laryngeal reflux will have her get seen by GI Intestinal obstruction 78997649 K56.609 will refer to GI dr for eval and prob colonoscop y [id number] [facility] [address] [facility] [place] [address] 02/02/2022 11:48:49 02/03/2022 10:21:26 Impaired fasting glycemia 036929488 R73.01 will get lab Gastroesop hageal reflux disease 389015685 K21.9 states not too bad takes med prn Intestinal obstruction 48140460 K56.609 this actually turned out to be her GB and is not approp dx also has been dx with chronic constipati on Intermitte nt palpitations 236044702 R00.2 Atypical chest pain 1025 [address]07[id number] [facility] [address] [facility] [address] 05/20/2022 09:45:26 05/20/2022 10:32:21 Acute sinusitis 54552633 J01.01 will start on abx Productive cough 9765181 5 R05.1 will start on cough suppressan t [id number] Shun Hernandez [facility] [address] [facility] [address] 12/17/2023 10:41:52 12/20/2023 15:03:52 Cough 18745933 R05.1 will set up with inhaler and cough medication Pneumonia 772080096 J18. 8 will start on levofloxac in and prednisone , big concern for pneumonia [id number] Shun Hernandez [facility] [address] [facility] [address] 01/07/2024 10:12:12 01/10/2024 14:46:17 Mass of neck 410751875 R22.[address] sinus since US and XR were negative but there is a mass that is noted on examcan't tell what it is do to difficulty seeing it where it lies Chronic cough 78401806 R 05.3 start maintenanc e inhaler Atypical chest pain 1025 14565 R07.89 has cardio fu next week Diabetes m ellitus screening 978027429 Z13.1 due for a1c screening [id number] Shun Hernandez [facility] [address] [facility],[place] [address] 04/28/2024 11:43:02 04/28/2024 14:51:54 Depression screening 762735674 Z13.31 0 Chronic laryngitis 62919 006 J37.0 will see if we can have her see another office sooner than the fall Adult heal th examination 101998930 Z00.00 will recheck labs Abdominal pain 54694651 R10.0 having up sharp pain in her RUQ and LUQ [id number] Shun Hernandez [facility] [address] [facility],[place] [address] 01/24/2025 10:49:18 01/24/2025 14:55:48 Abdominal pain 60100712 R10.0 having up sharp pain in her RUQ Body mass index 30+ - obesity 872651798 Z68.38 HTN, DAMION, HLD, Obesity Mass of upper limb 71820 5008 R22.31 will set up with US as well [id number] Shun Hernandez DO [facility] [address] [facility],[place] [address] 01/31/2025 13:33:00 01/31/2025 14:15:18 Acute bacterial sinusitis 38739671 J01.11 start amox and prednisone [id number] Shun Hernandez [facility] [address] [facility],[place] [address] 04/03/2025 11:28:12 04/03/2025 16:00:41 Asthmatic bronchitis 677583249 J45.[id number] [facility] [address] [facility],[place] [address] 04/24/2025 14:58:17 04/24/2025 16:17:17 Acute ischemic colitis 44898238 K55.039 will set up with MRAhas f/u with GI on 05/14 Left lower quadrant pain 914251501 R10.32 [id number] [facility] [address] [facility],[place] [address] 05/29/2025 15:33:14 05/29/2025 16:18:15 Active or passive immunization 341518468 Z23 advised General ex amination of patient 612691248 Z00.00 will recheck labs Ischemic colitis 1473836 4 K55.9 secondary opinion Acute kidney injury 1466 9001 N17.9 dropping GFR, down from 77 to 58 Health Concerns Section Related Observation LastModified by Organization Detai ls LastModified Time None Recorded Concern Status LastModified by Organization Details LastModified Time None Recorded Advance Directives Directive None Recorded Payers Insurance Date Sequence Insurance Name Policy Number Policy Schmitz Covered Member ID Schmitz Member ID Guarantor Name 05/28/2025 1 [facility] [id number] Azul Stephen [id number] Azul Stephen Notes Date Note Type Note Provider Name and Address Organization Details Recorded Time 5 text/html c/o abdominal pain and right [...] as well to confirm VEE JIMENES [address] [facility], [place], [address], [facility] 01/24/2025 11:35:09 5 text/html c/o ?sinus infection The patient is participating in this appointment via telemedicine communication with a phone call/video calling service ([employer])The patient consents to use of these platforms [...] end of the week VEE JIMENES [address] [place], [address], [facility] 01/31/2025 13:57:23 5 text/html patient is evaluated via tele/video assessment per patient consent during current pandemic cough and congestion amnd feeling worse using mult otc meds anbd now worsening with productive cough and hearing wheeze has not tested for covidshe is at a convention in [place] but relates had some symptoms prior to this Shun Hernandez DO [address] [place], [address], [facility] 04/03/2025 15:23:00 5 text/html hospital f/u the [...] bland light dietincrease fluid intake VEE JIMENES [address] [place], [address], [facility] 04/24/2025 15:43:35 5 text/html Annual WellnessReported bypatient.Diet and Nutrition:healthy diet [...] of depression; no history of mood disorders Hearing:no loss of hearing Vision:no vision problems discussed MRA result, has moderate celiac artery compression from the median arcuate ligamentit is an uncommon and may not have caused the ischemic colitisrecommend second opinion, GI here to going to pursue anything further, GI declined repeat colonoscopy they were going to have her due in the fall VEE JIMENES [address] [place], [address], [facility] 05/29/2025 16:14:22 OBGyn Episode No OBEpisode recorded.
[2025-05-31 10:43] LABS: Alanine Aminotransferase 33 U/L (0-31); Albumin Level 4.2 g/dL (3.5-5.0); Alkaline Phosphatase 107 U/L (39-117); Anion Gap 12 (12-20); Aspartate Amino Transferase 24 U/L (5-31); Blood Urea Nitrogen 15 mg/dL (9-16); Calcium 9.4 mg/dL (8.4-10.2); Carbon Dioxide 26 mmol/L (22-29); Chloride 107 mmol/L (96-108); Estimated Glomerular Filt Rate 60; Magnesium 2.0 mg/dL (1.6-2.6); Potassium 4.0 mmol/L (3.3-5.1); Sodium 141 mmol/L (135-145); Total Protein 6.5 g/dL (6.5-8.0)
[2025-05-31 10:54] LABS: Appearance Urine Clear; Glucose Urine UA Negative (Negative); PH 5.5 (5.0-9.0); Specific Gravity - Urine 1.025 (1.005-1.025); UMIC TRIGGER UACC YES
[2025-05-31 10:59] LABS: Parathyroid Hormone Intact 80.2 pg/mL (8.7-77.1)
[2025-05-31 11:02] LABS: Protein/Creatinine Ratio, Ur 0.04 (<0.2); Total Protein Urine Random 15 mg/dL (<12)
[2025-05-31 11:20] LABS: UACC Culture Trigger YES
== END 2025-05-31 08:22 | disposition home or self-care (01) ==
LOC: HO.HMGCLDS 08:21
PROVIDERS: PCP Internal Medicine; Visit Provider Physician Assistant
DX: N17.9 Acute kidney failure, unspecified (principal); R82.90 Unspecified abnormal findings in urine
CPT/HCPCS: 36415; 80053; 81001; 81003; 82550; 82570; 83735; 83970; 84100; 84156; 87086

== ENCOUNTER 2025-07-03 11:19 | Outpatient (REF) | payer BC, SELFPAY ==
--- OUTSIDE RECORDS SUMMARY | 2025-07-03 12:51 | XMS_ITS | Encounter Summary ---
Author Organization [facility] Address [address] [place] [address] [place] [phone] Phone Care Team Providers Care Tour Actor Name Role Phone Shun Hernandez DO Primary Care Provider [phone] David, Shun Liu DO Unavailable Giacomoda, Shun Liu DO Primary Care Provider [phone] Encounter Details Date Type Department Care Team (Late st Contact Info) Description 04/20/2022 Transcribe Orders [facility] [address] [facility] [address] Floor, [address] [place], [place] [id number] Shun Hernandez, [address] [facility] [address] [place], [place] [id number] Social History Tobacco Use Types Packs/Day Years Used Date Smoking Tobacco: Never Smokeless Tobacco: Never Alcohol Use Standard Drinks/Week Comments Yes 0 (1 standard drink = 0.6 oz pur e alcohol) social Comments Unknown Sex and Gender Information Value Date Recorded Sex Assigned at Female 06/29/2024 12:52 AM EDT Legal Sex Female 9:32 PM EDT Gender Identity Female 04/20/2025 8:20 AM EDT Sexual Orientation Lesbian or Alonzo 04/20/2025 8: 20 AM EDT documented as of this encounter Plan of Treatment Upcoming Encounters Date Type Department Care Team (Late st Contact Info) Description 10/02/2024 Procedure Pass [facility] [address] [place] [address] 07/31/2025 11:00 AM EDT Office Visit [facility] [address] [facility] 5th [place] [address] Marcos Mixon MD [address] [address] [email or web address] 08/15/2025 2:20 PM EDT Office Visit [facility] [address] [facility] [address], [address] [place] [address] Ronnie Jimenez MD [address] [place] [address] 10/02/2025 10:15 AM EST Appointment Echo [facility] [address] [address] Nisha Woo DNP [address] [place] [address] documented as of this encounter Visit Diagnoses Not on filedocumented in this encounter Care Teams Tour Actor Relationship Specialty Start Date End Date Shun Hernandez DO PCP - General 08/30/17 04/19/25 Shun Hernandez DO [address] [place] [address] PCP - General Internal Medicine 04/20/25 Shun Hernandez DO [address] [place] [address] Insurance Assigned Provider 02/19/24 documented as of this encounter Additional Source Comments The information contained in this document represents components of the legal health record. It is not the complete legal health record.[facility]
--- OUTSIDE RECORDS SUMMARY | 2025-07-03 12:51 | XMS_ITS | Patient Health Record ---
Author Organization [facility] Address [address] [place] [address] Care Team Providers Care Physician Relations Specialist Name Role Phone Shun Hernandez Primary Care Provider Jamison Abel Unavailable [phone] Reason For Referral No Information Medications Medication [...] Problem Status W/U Status Risk Notes Problem 71352646 Rectal bleed (K62.5) Active confirmed Problem 38435209 Constipation, unspecified constipation type (K59.00) Active confirmed Problem [id number] Pharyngoesophage al dysphagia (R13.14) Active confirmed Plan Of Treatment Pending Test Test Name Order Date XR BARIUM SWALLOW-ESOPHAGUS 09/24/2020 Future Test Test Name Order Date UPPER GI ENDOSCOPY 04/30/2020 COLONOSCOPY 04/30/2020 Insurance Providers Payer Name Payer Address Payer Phone Subscriber Number Group Number Insured Name Patient Relationship to Insured Coverage Start Date Coverage End Date [facility] [id number] [address] [place] [address] [phone] [id number] 2 IRVING RECINOS Self - patient is the insured Medical (General) History Medical History History ICD Code Denies UT,DM,CVA,Lung disease,renal dise ase ADHD Constipation Nonspecific dysphagia [...]
[2025-07-03 13:35] LABS: Alanine Aminotransferase 31 U/L (0-31); Albumin Level 4.3 g/dL (3.5-5.0); Alkaline Phosphatase 122 U/L (39-117); Anion Gap 11 (12-20); Aspartate Amino Transferase 25 U/L (5-31); Blood Urea Nitrogen 15 mg/dL (9-16); Calcium 9.5 mg/dL (8.4-10.2); Carbon Dioxide 26 mmol/L (22-29); Chloride 108 mmol/L (96-108); Estimated Glomerular Filt Rate > 60; Potassium 4.2 mmol/L (3.3-5.1); Sodium 141 mmol/L (135-145); Total Protein 6.6 g/dL (6.5-8.0)
== END 2025-07-03 11:20 | disposition home or self-care (01) ==
LOC: HO.HMGCLDS 11:19
PROVIDERS: Visit Provider Physician Assistant
DX: T50.905A Adverse effect of unspecified drugs, medicaments and biological substances, initial encounter (principal)
CPT/HCPCS: 36415; 80053